=== PATIENT | female | born 1960 | race Caucasian/White ===

== ENCOUNTER → 2018-09-16 | Day surgery (SDC) | payer OTHER ==
[~2018-09-16] MED LIST: FENTANYL CITRATE/PF 100MCG/2 ML INJ ONE; HUMULIN R100 UNIT/2 SQ; INSULIN REGULAR, HUMAN 100 UNIT/1 ML 3ML VIAL ONE; LANTUS 3ML100 UNITS/ SQ; MIDAZOLAM HCL 5MG/ML 2ML VIAL ONE; PROPOFOL IV EMULSION 10 MG/ML 20 ML VIAL ONE; [UNRECOGNIZED DRUG - REMARK]
--- OUTSIDE RECORDS SUMMARY | 2018-09-16 08:14 | XMS REPORT | Continuity of Care Document ---
Author Author [facility] Interface Address Unknown Phone Unavailable Problems Problem Status Onset Date Classification Date Reported Comments Source Discharge Diagnosis: Rash and other nonspecific skin eruption 03/21/2016 03/24/2016 [facility] Discharge Diagnosis: Allergy, unspecified, initial encounter 03/21/2016 03/24/2016 [facility] RASH Active 03/20/2016 [facility] Discharge Diagnosis: Methicillin resistant Staphylococcus aureus infection, unspecified site 03/17/2016 03/20/2016 [facility] Discharge Diagnosis: Candidiasis of vulva and vagina 03/17/2016 03/20/2016 [facility] Discharge Diagnosis: Other sites of candidiasis 03/17/2016 03/20/2016 [facility] Discharge Diagnosis: Urinary tract infection, site not specified 11/26/2015 11/29/2015 [facility] VAGINAL PAIN Active 11/26/2015 [facility] CP R/O ACS Active 11/23/2015 [facility] CHEST PAIN Active 11/23/2015 [facility] MIA Active 05/25/2015 [facility] SYNCOPE AT CONCERT DIABETIC AND HAS NO M Active 05/25/2015 [facility] Discharge Diagnosis: Acute bronchitis 01/23/2015 01/26/2015 [facility] Discharge Diagnosis: Elevated BP 01/23/2015 01/26/2015 [facility] Discharge Diagnosis: Acute gastritis 05/19/2014 05/22/2014 [facility] ABDOMINAL PAIN Active 05/19/2014 [facility] Back pain Resolved Problem 03/24/2016 [facility] DM (<span [id number]</span>) Resolved Problem 03/24/2016 [facility] H/O: migraine Resolved Problem 03/24/2016 [facility] HTN - Hypertension Resolved Problem 03/24/2016 [facility] Mass in the abdomen Resolved Problem 03/24/2016 [facility] Depressive disorder Resolved Problem 03/24/2016 [facility] ACUTE KIDNEY FAILURE NOS Active [facility] Medications Medication Details Route Status Patient Instructions Ordering Provider Order Date Source predniSONE 20 mg oral tablet 60 mg=3 tab, PO, Daily, Take 3 tablets for 60 mg dose, X 3 day, # 9 tab, 0 Refill(s) Active 03/21/2016 [facility] Famotidine 20 MG Oral Tablet [Pepcid] 20 mg=1 tab, PO, BID, # 10 tab, 0 Refill(s) Active 03/21/2016 [facility] clindamycin 150 mg oral capsule 300 mg=2 cap, PO, Q6H, X 7 day, # 56 cap, 0 Refill(s) Active 03/21/2016 [facility] Morphine 4 mg, Route: IVP, Drug form: INJ, ONCE, Dosing Weight 95.455, kg, Priority: STAT, Start date: 03/21/16 13:33:00 CDT, Stop date: 03/21/16 13:33:00 CDT Inactive 03/21/2016 [facility] Pepcid 2 tab, Route: PO, ONCE, Dosing Weight 95.455, kg, Start date: 03/21/16 13:18:00 CDT, Stop date: 03/21/16 13:18:00 CDT Inactive 03/21/2016 [facility] Benadryl 50 mg, 1 cap, Route: PO, Drug form: CAP, ONCE, Dosing Weight 95.455, kg, Priority: STAT, Start date: 03/21/16 13:18:00 CDT, Stop date: 03/21/16 13:18:00 CDTNotes: (Same as: Benadryl) Inactive 03/21/2016 [facility] Solu-Medrol 125 mg, Route: IVP, ONCE, Dosing Weight 95.455, kg, Priority: STAT, Start date: 03/21/16 13:18:00 CDT, Stop date: 03/21/16 13:18:00 CDT Inactive 03/21/2016 [facility] Clindamycin 900 mg, Route: IVPB, ONCE, Dosing Weight 95.455, kg, Priority: STAT, Start date: 03/21/16 13:18:00 CDT, Stop date: 03/21/16 13:18:00 CDT Inactive 03/21/2016 [facility] Sodium Chloride 0.154 MEQ/ML Injectable Solution 1,000 mL, 1,000 ml/hr, Infuse Over: 1 hr, Route: IV, 1,000, Drug form: INJ, ONCE, Priority: STAT, Dosing Weight 95.455 kg, Start date: 03/21/16 13:17:00 CDT, Duration: 1 doses or times, Stop date: 03/21/16 13:17:00 CDT Inactive 03/21/2016 [facility] Clotrimazole 10 MG/ML Topical Cream 1 appl, TOP, BID, apply to affected area for 2 to 4 weeks, X 7 day, # 60 gm, 0 Refill(s) Active 03/17/2016 [facility] Fluconazole 150 MG Oral Tablet [Diflucan] 150 mg=1 tab, PO, qWeek, # 2 tab, 0 Refill(s) Active 03/17/2016 [facility] Nystatin 862319 UNT/ML Oral Suspension 500,000 unit=5 mL, PO, Q6H, Swish and Swallow, X 10 day, # 200 mL, 0 Refill(s) Active 03/17/2016 [facility] Mupirocin 0.02 MG/MG Topical Ointment 1 appl, TOP, TID, X 5 day, # 22 gm, 0 Refill(s) Active 03/17/2016 [facility] doxycycline hyclate 100 mg oral tablet 100 mg=1 tab, PO, Q12H, X 10 day, # 20 tab, 0 Refill(s) Active 03/17/2016 [facility] Sulfamethoxazole 800 MG / Trimethoprim 160 MG Oral Tablet [Bactrim] 1 tab, PO, BID, X 10 day, # 20 tab, 0 Refill(s) Active 03/17/2016 [facility] Diphenhydramine 50 mg, Route: PO, Drug form: CAP, ONCE, Dosing Weight 109.091, kg, Priority: STAT, Start date: 03/17/16 15:47:00 CDT, Stop date: 03/17/16 15:47:00 CDT Inactive 03/17/2016 [facility] Acetaminophen 325 MG / Hydrocodone Bitartrate 5 MG Oral Tablet 1 tab, Route: PO, Dosing Weight 109.091, kg, ONCE, STAT, Start date: 03/17/16 15:47:00 CDT, Stop date: 03/17/16 15:47:00 CDT Inactive 03/17/2016 [facility] Fluconazole 150 MG Oral Tablet [Diflucan] 150 mg=1 tab, PO, ONCE, # 1 tab, 0 Refill(s) Active 11/26/2015 [facility] Ciprofloxacin 500 MG Oral Tablet [Cipro] 500 mg=1 tab, PO, Q12H, X 10 day, # 20 tab, 0 Refill(s) Active 11/26/2015 [facility] Rocephin 1 gm, Route: IM, Drug form: PDR/INJ, ONCE, Dosing Weight 104.545, kg, Priority: STAT, Start date: 11/26/15 11:21:00, Stop date: 11/26/15 11:21:00 Inactive 11/26/2015 [facility] Acetaminophen 325 MG / Hydrocodone Bitartrate 10 MG Oral Tablet [Swayzee 10/325] 1 tab, Route: PO, Drug Form: TAB, Dosing Weight 104.545, kg, ONCE, STAT, Start date: 11/26/15 11:07:00, Stop date: 11/26/15 11:07:00 Inactive 11/26/2015 [facility] Lidocaine Viscous 2% mucous membrane solution 0.1 gm, 5 mL, Route: TOP, ONCE, Priority: Stat, Start date: 11/26/15 10:49:00, Stop date: 11/26/15 10:49:00 Inactive 11/26/2015 [facility] Nitroglycerin 0.4 mg, Route: SL, Drug form: TAB, Q5Min, Dosing Weight 100, kg, PRN Chest Pain, Start date: 11/24/15 17:27:00, Duration: 3 doses or times, Stop date: Limited # of times Inactive 11/24/2015 [facility] atorvastatin 40 mg oral tablet 40 mg=1 tab, PO, Bedtime, # 30 tab, 3 Refill(s) Active 11/24/2015 [facility] Morphine 1 mg, 0.5 mL, Route: IVP, Drug form: INJ, Q6H, Dosing Weight 100, kg, PRN Pain Score 7-10, Start date: 11/24/15 12:38:00, Duration: 30 day, Stop date: 12/24/15 12:37:00Notes: (Same as:MORPhine Sulfate) Inactive 11/24/2015 [facility] Saline Flush 0.9% 10 ml, Route: IVP, Drug Form: INJ, Dosing Weight 100, kg, Q12H, Start date: 11/24/15 9:00:00, Duration: 30 day, Stop date: 12/23/15 21:00:00Notes: (Same as: BD Posiflush) Inactive 11/24/2015 [facility] Insulin, Aspart, Human 6 unit, 0.06 mL, Route: SUB-Q, Drug form: SOLN, TID-Before Meals, Dosing Weight 100, kg, PRN Blood Glucose Results, Start date: 11/23/15 21:44:00, Duration: 30 day, Stop date: 12/23/15 21:43:00Notes: Roll in palms of hands gently; Do not shake vigorously. (Same as: NovoLOG) "single patient use only" WASTE: F/P - Black; E - Municipal Trash Bin Stable for 28 days at room temperature. Expires in days from Date No Longer Active 11/24/2015 [facility] Glucagon 1 mg, Route: IM, Drug form: PDR/INJ, PRN, Dosing Weight 100, kg, PRN Blood Glucose Results, Start date: 11/23/15 21:44:00, Duration: 30 day, Stop date: 12/23/15 21:43:00 No Longer Active 11/24/2015 [facility] Dextrose 50% Syringe 25 gm, 50 mL, Route: IVP, Drug Form: INJ, Dosing Weight 100, kg, PRN, PRN Blood Glucose Results, Start date: 11/23/15 21:44:00, Duration: 30 day, Stop date: 12/23/15 21:43:00 No Longer Active 11/24/2015 [facility] Saline Flush 0.9% 10 ml, Route: IVP, Drug Form: INJ, Dosing Weight 100, kg, PRN, PRN Line Flush, Start date: 11/23/15 21:43:00, Duration: 30 day, Stop date: 12/23/15 21:42:00Notes: (Same as: BD Posiflush) No Longer Active 11/24/2015 [facility] Morphine 2 mg, 1 mL, Route: IVP, Drug form: INJ, Q15Min, Dosing Weight 100, kg, PRN Chest Pain, Start date: 11/23/15 21:43:00, Duration: 2 doses or times, Stop date: Limited # of timesNotes: (Same as:MORPhine Sulfate) No Longer Active 11/24/2015 [facility] Nitroglycerin 0.4 mg, 1 tab, Route: SL, Drug form: TAB, Q5Min, Dosing Weight 100, kg, PRN Chest Pain, Start date: 11/23/15 21:43:00, Duration: 3 doses or times, Stop date: Limited # of timesNotes: (Same as:Nitroqu ick, Nitrostat) "Do Not Crush" Sublingual tablet No Longer Active 11/24/2015 [facility] Ondansetron 4 mg, 1 tab, Route: PO, Drug form: TAB, Q8H, Dosing Weight 100, kg, PRN Nausea & Vomiting, Start date: 11/23/15 21:43:00, Duration: 30 day, Stop date: 12/23/15 21:42:00Notes: (Same as: Zofran) No Longer Active 11/24/2015 [facility] Acetaminophen 325 MG / Hydrocodone Bitartrate 10 MG Oral Tablet [Swayzee 10/325] 1 tab, PO, TID, PRN Pain, # 60 tab, 0 Refill(s) Active 11/24/2015 [facility] Albuterol 0.833 MG/ML / Ipratropium [place] 0.167 MG/ML Inhalant Solution 3 mL, Route: NEB, Drug Form: SOLN, Dosing Weight 100, kg, ONCE, STAT, Start date: 11/23/15 20:05:00, Stop date: 11/23/15 20:05:00Notes: (Same as: Duoneb) No Longer Active 11/24/2015 [facility] Acetaminophen 325 MG / Hydrocodone Bitartrate 5 MG Oral Tablet [Swayzee 5/325] 1 tab, Route: PO, Drug Form: TAB, Dosing Weight 100, kg, ONCE, STAT, Start date: 11/23/15 19:07:00, Stop date: 11/23/15 19:07:00 Inactive 11/24/2015 [facility] Nitroglycerin 0.4 mg, 1 tab, Route: SL, Drug form: TAB, Q5Min, Dosing Weight 100, kg, PRN Chest Pain, Priority: STAT, Start date: 11/23/15 19:06:00, Duration: 3 doses or times, Stop date: Limited # of timesNotes: (Same as:Nitroquick, Nitrostat) "Do Not Crush" Sublingual tablet Inactive 11/24/2015 [facility] Aspirin 324 mg, Route: CHEW, Drug form: CHEWTAB, ONCE, Dosing Weight 100, kg, Priority: STAT, Start date: 11/23/15 19:06:00, Stop date: 11/23/15 19:06:00 Inactive 11/24/2015 [facility] Saline Flush 0.9% 10 mL, Route: IVP, Drug Form: INJ, Dosing Weight 100, kg, PRN, PRN Line Flush, Start date: 11/23/15 16:39:00, Duration: 30 day, Stop date: 12/23/15 16:38:00Notes: (Same as: BD Posiflush) Inactive 11/23/2015 [facility] topiramate 25 mg, 1 tab, Route: PO, Drug form: TAB, Q12H, Dosing Weight 86.364, kg, Start date: 05/25/15 22:01:00, Duration: 30 day, Stop date: 06/24/15 21:00:00Notes: (Same As: Topamax) "Do Not Crush" No Longer Active 05/26/2015 [facility] Sumatriptan 50 mg, 2 tab, Route: PO, Drug form: TAB, TID, Dosing Weight 86.364, kg, PRN Headache 1-5, Start date: 05/25/15 21:38:00, Duration: 30 day, Stop date: 06/24/15 21:37:00Notes: (Same As: Imitrex) No Longer Active 05/26/2015 [facility] topiramate 25 mg oral capsule 25 mg=1 cap, PO, BID, 0 Refill(s) Active 05/26/2015 [facility] SUMAtriptan 50 mg oral tablet 50 mg=1 tab, PO, TID, 0 Refill(s) Active 05/26/2015 [facility] Famotidine 40 mg, PO, BID, # 60 tab, 0 Refill(s) Active 05/26/2015 [facility] Metronidazole 500 MG Oral Tablet [Flagyl] 500 mg=1 tab, PO, Q12H, # 30 tab, 0 Refill(s) No Longer Active 05/26/2015 [facility] omeprazole 20 mg oral delayed release capsule 20 mg=1 cap, PO, Daily, 0 Refill(s) Active 05/26/2015 [facility] Tetracycline 250 MG Oral Capsule 250 mg=1 cap, PO, Q6H, # 56 cap, 0 Refill(s) No Longer Active 05/26/2015 [facility] Metformin hydrochloride 1000 MG Oral Tablet 1,000 mg=1 tab, PO, Daily, 0 Refill(s) Active 05/26/2015 [facility] NS 1,000 mL 1,000 mL, Rate: 125 ml/hr, Infuse over: 8 hr, Route: IV, Dosing Weight 86.364 kg, Total Volume: 1,000, Start date: 05/25/15 17:24:00, Duration: 30 day, Stop date: 06/24/15 17:23:00 No Longer Active 05/25/2015 [facility] Protonix 40 mg, 1 tab, Route: PO, Drug form: ECTAB, Before Dinner, Dosing Weight 86.364, kg, Start date: 05/25/15 16:30:00, Duration: 30 day, Stop date: 06/23/15 16:30:00Notes: Tablet should not be chewed or crushed. (Same as: Protonix) No Longer Active 05/25/2015 [facility] Acetaminophen 325 MG / Hydrocodone Bitartrate 7.5 MG Oral Tablet [Swayzee 7.5/325] 1 tab, Route: PO, Drug Form: TAB, Dosing Weight 86.364, kg, Q4H, PRN Pain Score 4-6, Start date: 05/25/15 14:15:00, Duration: 30 day, Stop date: 06/24/15 14:14:00Notes: Same as Swayzee 325-7.5mg Do not exceed 4gm/day of acetaminophen. No Longer Active 05/25/2015 [facility] Thiamine 100 mg, 1 tab, Route: PO, Drug form: TAB, Daily, Dosing Weight 86.364, kg, Start date: 05/25/15 9:00:00, Duration: 30 day, Stop date: 06/23/15 9:00:00Notes: (Same As: Vitamin B1) No Longer Active 05/25/2015 [facility] Folic Acid 1 mg, 1 tab, Route: PO, Drug form: TAB, Daily, Dosing Weight 86.364, kg, Start date: 05/25/15 9:00:00, Duration: 30 day, Stop date: 06/23/15 9:00:00Notes: (Same as: Folvite) No Longer Active 05/25/2015 [place] multivitamin 1 tab, Route: PO, Drug Form: TAB, Dosing Weight 86.364, kg, Daily, Start date: 05/25/15 9:00:00, Duration: 30 day, Stop date: 06/23/15 9:00:00 Inactive 05/25/2015 [facility] pneumococcal capsular polysaccharide type 1 vaccine / pneumococcal capsular polysaccharide type 10A vaccine / pneumococcal capsular polysaccharide type 11A vaccine / pneumococcal capsular polysaccharide type 12F vaccine / pneumococcal capsular polysacchar 0.5 mL, Route: IM, Drug Form: INJ, Daily, Start date: 05/25/15 9:00:00, Duration: 1 doses or times, Stop date: 05/25/15 9:00:00Notes: (Same as: Pneumovax 23) Refrigerate Inactive 05/25/2015 [facility] multivitamin with minerals 1 tab, Route: PO, Drug Form: TAB, Daily, Start date: 05/25/15 9:00:00, Duration: 30 day, Stop date: 06/23/15 9:00:00Notes: (Same as:Centrum, Certagen) Give with food. No Longer Active 05/25/2015 [facility] Nicotine 14 mg, 1 patch, Route: TOP, Drug form: ERFILM, Daily, Dosing Weight 86.364, kg, Start date: 05/25/15 9:00:00, Duration: 30 day, Stop date: 06/23/15 9:00:00Notes: (Same as: Habitrol) "Remove old patch before application of new patch" No Longer Active 05/25/2015 [facility] heparin 5,000 unit, 1 mL, Route: SUB-Q, Drug form: INJ, Q12H, Dosing Weight 86.364, kg, Start date: 05/25/15 9:00:00, Duration: 30 day, Stop date: 06/23/15 21:00:00Notes: porcine heparin No Longer Active 05/25/2015 [facility] Cipro 250 mg, 1 tab, Route: PO, Drug form: TAB, [id number], Dosing Weight 86.364, kg, Start date: 05/25/15 8:00:00, Duration: 3 day, Stop date: 05/27/15 20:00:00Notes: May interfere w/enteral feedings - Take 1 hr before or 2 hrs after antacids, dairy pdt & minerals. On empty stomach. No Longer Active 05/25/2015 [facility] Albuterol 0.833 MG/ML / Ipratropium [place] 0.167 MG/ML Inhalant Solution [DuoNeb] 3 mL, Route: INHALATION, Drug Form: SOLN, Dosing Weight 86.364, kg, RQ6H, NOW, Start date: 05/25/15 6:20:00, Duration: 30 day, Stop date: 06/24/15 2:00:00Notes: (Same as: Duoneb) No Longer Active 05/25/2015 [facility] Sodium Chloride 0.154 MEQ/ML Injectable Solution 1,000 mL, 1,000 ml/hr, Infuse Over: 1 hr, Route: IV, 1,000, Drug form: INJ, ONCE, Priority: STAT, Dosing Weight 86.364 kg, Start date: 05/25/15 6:01:00, Duration: 1 doses or times, Stop date: 05/25/15 6:01:00 Inactive 05/25/2015 [facility] Insulin, Aspart, Human 3 unit, 0.03 mL, Route: SUB-Q, Drug form: SOLN, Bedtime, Dosing Weight 86.364, kg, PRN Blood Glucose Results, Start date: 05/25/15 6:00:00, Duration: 30 day, Stop date: 06/24/15 5:59:00Notes: Roll in palms of hands gently; Do not shake vigorously. (Same as: NovoLOG) "single patient use only" Stable for 28 days at room temperature. Expires in days from Date No Longer Active 05/25/2015 [facility] Dextrose 50% Syringe 12.5 gm, 25 mL, Route: IVP, Drug Form: INJ, Dosing Weight 86.364, kg, PRN, PRN Blood Glucose Results, Start date: 05/25/15 6:00:00, Duration: 30 day, Stop date: 06/24/15 5:59:00 No Longer Active 05/25/2015 [facility] Glucagon 1 mg, Route: IM, Drug form: PDR/INJ, PRN, Dosing Weight 86.364, kg, PRN Blood Glucose Results, Start date: 05/25/15 6:00:00, Duration: 30 day, Stop date: 06/24/15 5:59:00 No Longer Active 05/25/2015 [facility] Acetaminophen 325 MG / Hydrocodone Bitartrate 7.5 MG Oral Tablet [Swayzee 7.5/325] 1 tab, Route: PO, Drug Form: TAB, Dosing Weight 86.364, kg, Q6H, PRN Pain Score 4-6, Start date: 05/25/15 5:59:00, Duration: 30 day, Stop date: 06/24/15 5:58:00Notes: Same as Swayzee 325-7.5mg Do not exceed 4gm/day of acetaminophen. Inactive 05/25/2015 [facility] Tylenol 650 mg, 2 tab, Route: PO, Drug form: TAB, Q6H, Dosing Weight 86.364, kg, PRN Pain Score 1-3, Start date: 05/25/15 5:59:00, Duration: 30 day, Stop date: 06/24/15 5:58:00Notes: Do not exceed 4 gm/day. (Same as: Tylenol) No Longer Active 05/25/2015 [facility] normal saline 0.9% IV 1,000 mL 1,000 mL, Rate: 150 ml/hr, Infuse over: 6.7 hr, Route: IV, Dosing Weight 86.364 kg, Total Volume: 1,000, Start date: 05/25/15 5:29:00, Duration: 30 day, Stop date: 06/24/15 5:28:00 Inactive 05/25/2015 [facility] Sodium Chloride 0.154 MEQ/ML Injectable Solution 1,000 mL, 1,000 ml/hr, Infuse Over: 1 hr, Route: IV, 1,000, Drug form: INJ, ONCE, Priority: STAT, Dosing Weight 86.364 kg, Start date: 05/25/15 4:46:00, Duration: 1 doses or times, Stop date: 05/25/15 4:46:00 Inactive 05/25/2015 [facility] Acetaminophen 300 MG / butalbital 50 MG / Caffeine 40 MG Oral Capsule [Fioricet] 1 cap, PO, Q4H, PRN Headache, Do not exceed 6 capsules in 24 hours, # 60 cap, 0 Refill(s)Special Instructions: Do not exceed 6 capsules in 24 hours Active 01/23/2015 [facility] albuterol 90 mcg/inh inhalation aerosol 1 puff, INHALATION, QID, wheezing, # 1 ea, 0 Refill(s) Active 01/23/2015 [facility] Albuterol 0.83 MG/ML Inhalant Solution 2.49 mg=3 mL, INHALATION, Q6H, # 120 ea, 0 Refill(s) Active 01/23/2015 [facility] Nebulizer 1 ea, MISC, ONCALL, # 1 ea, 0 Refill(s) Active 01/23/2015 [facility] Aspirin 324 mg, Route: CHEW, Drug form: CHEWTAB, ONCE, Dosing Weight 90.909, kg, Priority: STAT, Start date: 01/23/15 11:44:00, Stop date: 01/23/15 11:44:00 Inactive 01/23/2015 [facility] methylPREDNISolone SODium SUCCinate 125 mg, Route: IVP, ONCE, Dosing Weight 90.909, kg, Priority: STAT, Start date: 01/23/15 11:02:00, Stop date: 01/23/15 11:02:00 Inactive 01/23/2015 [facility] Albuterol 0.83 MG/ML Inhalant Solution 2.49 mg, Route: NEB, Drug form: SOLN, ONCE, Dosing Weight 90.909, kg, Priority: STAT, Start date: 01/23/15 11:01:00, Stop date: 01/23/15 11:01:00 Inactive 01/23/2015 [facility] Albuterol 0.833 MG/ML / Ipratropium [place] 0.167 MG/ML Inhalant Solution 3 mL, Route: NEB, Dosing Weight 90.909, kg, ONCE, STAT, Start date: 01/23/15 11:01:00, Stop date: 01/23/15 11:01:00 Inactive 01/23/2015 [facility] Saline Flush 0.9% 10 mL, Route: IVP, Drug Form: INJ, Dosing Weight 90.909, kg, PRN, PRN Line Flush, Start date: 01/23/15 11:01:00, Duration: 30 day, Stop date: 02/22/15 11:00:00Notes: (Same as: BD Posiflush) Inactive 01/23/2015 [facility] Ranitidine 300 MG Oral Tablet [Zantac] 300 mg=1 tab, PO, Daily, # 30 tab, 0 Refill(s) Active 05/19/2014 [facility] Allergies, Adverse Reactions, Alerts Substance Category Reaction Severity Reaction type Status Date Reported Comments Source NKFA Assertion Drug allergy Active [facility] Immunizations Immunization Date Given Site Status Last Updated Comments Source pneumococcal 23-valent vaccine 05/25/2015 Right deltoid completed [facility] Results Order Name Results Value Reference Range Date Interpretation Comments Source CHEM PANEL B/C Ratio 13 6 - 25 03/21/2016 [facility] CHEM PANEL AGAP 12.1 meq/L 10.0 - 20.0 03/21/2016 [facility] CHEM PANEL A/G Ratio 0.8 0.7 - 1.6 03/21/2016 [facility] CHEM PANEL Globulin 4.0 g/dL 2.0 - 4.0 03/21/2016 [facility] CHEM PANEL eGFR 55 mL/min/1.73m2 03/21/2016 Result Comment: The eGFR is calculated using the CKD-EPI formula. In most young, healthy individuals the eGFR will be >90 mL/min/1.73m2. The eGFR declines with age. An eGFR of 60-89 may be normal in some populations, particularly the elderly, for whom the CKD-EPI formula has not been extensively validated. Use of the eGFR is not recommended in the following populations: Individuals with unstable creatinine concentrations, including patients and those with serious co-morbid conditions. Patients with extremes in muscle mass or diet. The data above are obtained from the National Kid[employer] Disease Education Program (NKDEP) which additionally recommends that when the eGFR is used in patients with extremes of body mass index for purposes of drug dosing, the eGFR should be multiplied by the estimated BMI. [facility] CHEM PANEL AST 24 unit/L 0 - 37 03/21/2016 [facility] CHEM PANEL ALT 33 unit/L 0 - 65 03/21/2016 [facility] CHEM PANEL Albumin Lvl 3.2 g/dL 3.5 - 5.0 03/21/2016 [facility] CHEM PANEL Bili Total 0.5 mg/dL 0.2 - 1.3 03/21/2016 [facility] CHEM PANEL Alk Phos 119 unit/L 39 - 136 03/21/2016 [facility] CHEM PANEL Calcium Lvl 8.6 mg/dL 8.5 - 10.5 03/21/2016 [facility] CHEM PANEL Total Protein 7.2 g/dL 6.4 - 8.4 03/21/2016 [facility] CHEM PANEL Potassium Lvl 4.1 meq/L 3.5 - 5.1 03/21/2016 [facility] CHEM PANEL Sodium Lvl 137 meq/L 135 - 145 03/21/2016 [facility] CHEM PANEL CO2 29 meq/L 24 - 32 03/21/2016 [facility] CHEM PANEL Chloride Lvl 100 meq/L 95 - 109 03/21/2016 [facility] CHEM PANEL BUN 14 mg/dL 7 - 22 03/21/2016 [facility] CHEM PANEL Creatinine Lvl 1.11 mg/dL 0.50 - 1.40 03/21/2016 [facility] CHEM PANEL Glucose Lvl 222 mg/dL 70 - 99 03/21/2016 [facility] HEMATOLOGY Segs 50.7 % 45.0 - 75.0 03/21/2016 [facility] HEMATOLOGY Lymphocytes 32.8 % 20.0 - 40.0 03/21/2016 [facility] HEMATOLOGY Monocytes 8.5 % 2.0 - 12.0 03/21/2016 [facility] HEMATOLOGY Segs-Bands # 3.9 K/CMM 1.5 - 8.1 03/21/2016 [facility] HEMATOLOGY Eosinophils 7.4 % 0.0 - 4.0 03/21/2016 [facility] HEMATOLOGY Basophils 0.6 % 0.0 - 1.0 03/21/2016 [facility] HEMATOLOGY Lymphocytes # 2.6 K/CMM 1.0 - 5.5 03/21/2016 [facility] HEMATOLOGY Monocytes # 0.7 K/CMM 0.0 - 0.8 03/21/2016 [facility] HEMATOLOGY Eosinophils # 0.6 K/CMM 0.0 - 0.5 03/21/2016 [facility] HEMATOLOGY MCHC 31.7 g/dL 32.0 - 36.0 03/21/2016 [facility] HEMATOLOGY RDW 15.0 % 11.5 - 14.5 03/21/2016 [facility] HEMATOLOGY Platelet 280 K/CMM 133 - 450 03/21/2016 [facility] HEMATOLOGY MPV 7.6 fL 7.4 - 10.4 03/21/2016 [facility] HEMATOLOGY RBC 5.16 M/CMM 4.20 - 5.40 03/21/2016 [facility] HEMATOLOGY WBC 7.8 K/CMM 3.7 - 10.4 03/21/2016 [facility] HEMATOLOGY Hgb 14.5 g/dL 12.0 - 16.0 03/21/2016 [facility] HEMATOLOGY MCH 28.0 pg 27.0 - 31.0 03/21/2016 [facility] HEMATOLOGY MCV 88.2 fL 80.0 - 98.0 03/21/2016 [facility] HEMATOLOGY Hct 45.6 % 36.0 - 48.0 03/21/2016 [facility] URINE AND STOOL UA Bacteria Few /HPF None Seen /HPF 03/21/2016 [facility] URINE AND STOOL UA WBC 3-5 /HPF 0 - 5 03/21/2016 [facility] URINE AND STOOL UA RBC 3-5 /HPF 0 - 2 03/21/2016 [facility] URINE AND STOOL UA Nitrite Negative (03/21/16 1:27 PM) Negative 03/21/2016 [facility] URINE AND STOOL UA Leuk Est Negative (03/21/16 1:27 PM) Negative 03/21/2016 [facility] URINE AND STOOL UA Sq Epi Moderate /LPF Few /LPF 03/21/2016 [facility] URINE AND STOOL UA Urobilinogen 1.0 EU/dL 0.1 - 1.0 03/21/2016 [facility] URINE AND STOOL UA Blood Trace *ABN* (03/21/16 1:27 PM) Negative 03/21/2016 [facility] URINE AND STOOL UA Bili Small *ABN* (03/21/16 1:27 PM) Negative 03/21/2016 [facility] URINE AND STOOL UA Ketones Negative *NA* (03/21/16 1:27 PM) Negative 03/21/2016 [facility] URINE AND STOOL UA Glucose >=1000 mg/dL Negative mg/dL 03/21/2016 [facility] URINE AND STOOL UA Protein 30 mg/dL Negative mg/dL 03/21/2016 [facility] URINE AND STOOL UA Spec Grav >=1.030 *ABN* (03/21/16 1:27 PM) <=1.030 03/21/2016 [facility] URINE AND STOOL UA Turbidity Clear (03/21/16 1:27 PM) Clear 03/21/2016 [facility] URINE AND STOOL UA pH 6.0 5.0 - 8.0 03/21/2016 [facility] URINE AND STOOL UA Color Yellow *NA* (03/21/16 1:27 PM) Yellow 03/21/2016 [facility] MOLECULAR DIAGNOSTIC N gonorrhea by Amp Det (APTIMA) Negative *NA* (11/26/15 11:01 AM) Negative 11/26/2015 [facility] MOLECULAR DIAGNOSTIC Source APTIMA Endocervix *NA* (11/26/15 11:01 AM) 11/26/2015 [facility] MOLECULAR DIAGNOSTIC C trachomatis by Amp Det (APTIMA) Negative *NA* (11/26/15 11:01 AM) Negative 11/26/2015 [facility] URINE AND STOOL UA Color Josefa 11/26/2015 [facility] URINE AND STOOL UA RBC 49 /HPF 0 - 2 11/26/2015 [facility] URINE AND STOOL UA Sq Epi Occasional /LPF Few /LPF 11/26/2015 [facility] URINE AND STOOL UA WBC 28 /HPF 0 - 5 11/26/2015 [facility] URINE AND STOOL UA Leuk Est Trace *ABN* (11/26/15 11:01 AM) Negative 11/26/2015 [facility] URINE AND STOOL UA Urobilinogen 4.0 mg/dL 0.1 - 1.0 11/26/2015 [facility] URINE AND STOOL UA Blood Moderate *ABN* (11/26/15 11:01 AM) Negative 11/26/2015 [facility] URINE AND STOOL UA Nitrite Positive *ABN* (11/26/15 11:01 AM) Negative 11/26/2015 [facility] URINE AND STOOL UA Bacteria Few /HPF None Seen /HPF 11/26/2015 [facility] URINE AND STOOL UA Mucus Few /LPF None Seen /LPF 11/26/2015 [facility] URINE AND STOOL UA pH 5.0 5.0 - 8.0 11/26/2015 [facility] URINE AND STOOL UA Protein 100 mg/dL Negative mg/dL 11/26/2015 [facility] URINE AND STOOL UA Bili Negative *NA* (11/26/15 11:01 AM) Negative 11/26/2015 [facility] URINE AND STOOL UA Ketones Negative mg/dL Negative mg/dL 11/26/2015 [facility] URINE AND STOOL UA Glucose 500 mg/dL Negative mg/dL 11/26/2015 [facility] URINE AND STOOL UA Turbidity Clear (11/26/15 11:01 AM) Clear 11/26/2015 [facility] URINE AND STOOL UA Spec Grav 1.030 <=1.030 11/26/2015 [facility] LIPIDS VLDL 40 11/24/2015 [facility] LIPIDS LDL (Calculated) 130 mg/dL <=99 mg/dL 11/24/2015 [facility] LIPIDS HDL 50 mg/dL >=61 mg/dL 11/24/2015 [facility] LIPIDS Chol 220 mg/dL <=199 mg/dL 11/24/2015 [facility] LIPIDS Trig 202 mg/dL <=149 mg/dL 11/24/2015 [facility] LIPIDS CHD Risk 4.40 3.90 - 5.80 11/24/2015 [facility] CARDIAC ENZYMES Troponin-I null 0.00 - 0.40 11/24/2015 [facility] CARDIAC ENZYMES Total CK 37 unit/L 12 - 191 11/24/2015 [facility] CARDIAC ENZYMES CK MB null 0.5 - 3.6 11/24/2015 [facility] CARDIAC ENZYMES Troponin-I null 0.00 - 0.40 11/24/2015 [facility] CARDIAC ENZYMES Total CK 32 unit/L 12 - 191 11/24/2015 [facility] CARDIAC ENZYMES CK MB null 0.5 - 3.6 11/24/2015 [facility] CARDIAC ENZYMES CK MB null 0.5 - 3.6 11/23/2015 [facility] CARDIAC ENZYMES Troponin-I null 0.00 - 0.40 11/23/2015 [facility] CARDIAC ENZYMES Total CK 37 unit/L 12 - 191 11/23/2015 [facility] CARDIAC ENZYMES CK MB Index null 0.0 - 2.5 11/23/2015 [facility] CHEM PANEL eGFR 81 mL/min/1.73m2 11/23/2015 Result Comment: The eGFR is calculated using the CKD-EPI formula. In most young, healthy individuals the eGFR will be >90 mL/min/1.73m2. The eGFR declines with age. An eGFR of 60-89 may be normal in some populations, particularly the elderly, for whom the CKD-EPI formula has not been extensively validated. Use of the eGFR is not recommended in the following populations: Individuals with unstable creatinine concentrations, including patients and those with serious co-morbid conditions. Patients with extremes in muscle mass or diet. The data above are obtained from the National Kidney Disease Education Program (NKDEP) which additionally recommends that when the eGFR is used in patients with extremes of body mass index for purposes of drug dosing, the eGFR should be multiplied by the estimated BMI. [facility] CHEM PANEL Bili Total 0.4 mg/dL 0.2 - 1.3 11/23/2015 [facility] CHEM PANEL B/C Ratio 23 6 - 25 11/23/2015 [facility] CHEM PANEL AGAP 11.2 meq/L 10.0 - 20.0 11/23/2015 [facility] CHEM PANEL A/G Ratio 0.7 0.7 - 1.6 11/23/2015 [facility] CHEM PANEL Globulin 4.4 g/dL 2.0 - 4.0 11/23/2015 [facility] CHEM PANEL Total Protein 7.6 g/dL 6.4 - 8.4 11/23/2015 [facility] CHEM PANEL CO2 29 meq/L 24 - 32 11/23/2015 [facility] CHEM PANEL Albumin Lvl 3.2 g/dL 3.5 - 5.0 11/23/2015 [facility] CHEM PANEL Calcium Lvl 9.2 mg/dL 8.5 - 10.5 11/23/2015 [facility] CHEM PANEL Chloride Lvl 104 meq/L 95 - 109 11/23/2015 [facility] CHEM PANEL Alk Phos 109 unit/L 39 - 136 11/23/2015 [facility] CHEM PANEL AST 20 unit/L 0 - 37 11/23/2015 [facility] CHEM PANEL ALT 37 unit/L 0 - 65 11/23/2015 [facility] CHEM PANEL BUN 19 mg/dL 7 - 22 11/23/2015 [facility] CHEM PANEL Glucose Lvl 133 mg/dL 70 - 99 11/23/2015 [facility] CHEM PANEL Potassium Lvl 4.2 meq/L 3.5 - 5.1 11/23/2015 [facility] CHEM PANEL Sodium Lvl 140 meq/L 135 - 145 11/23/2015 [facility] CHEM PANEL Creatinine Lvl 0.81 mg/dL 0.50 - 1.40 11/23/2015 [facility] HEMATOLOGY MPV 7.3 fL 7.4 - 10.4 11/23/2015 [facility] HEMATOLOGY Platelet 244 K/CMM 133 - 450 11/23/2015 [facility] HEMATOLOGY MCHC 31.7 g/dL 32.0 - 36.0 11/23/2015 [facility] HEMATOLOGY RDW 14.1 % 11.5 - 14.5 11/23/2015 [facility] HEMATOLOGY MCH 28.6 pg 27.0 - 31.0 11/23/2015 [facility] HEMATOLOGY MCV 90.2 fL 80.0 - 98.0 11/23/2015 [facility] HEMATOLOGY WBC 8.2 K/CMM 3.7 - 10.4 11/23/2015 [facility] HEMATOLOGY RBC 4.78 M/CMM 4.20 - 5.40 11/23/2015 [facility] HEMATOLOGY Hct 43.1 % 36.0 - 48.0 11/23/2015 [facility] Hgb 13.7 g/dL 12.0 - 16.0 11/23/2015 [facility] HEMATOLOGY Basophils 0.9 % 0.0 - 1.0 11/23/2015 [facility] HEMATOLOGY Eosinophils 1.7 % 0.0 - 4.0 11/23/2015 [facility] HEMATOLOGY Lymphocytes # 2.0 K/CMM 1.0 - 5.5 11/23/2015 [facility] HEMATOLOGY Segs-Bands # 5.4 K/CMM 1.5 - 8.1 11/23/2015 [facility] Monocytes # 0.6 K/CMM 0.0 - 0.8 11/23/2015 [facility] Basophils # 0.1 K/CMM 0.0 - 0.2 11/23/2015 [facility] Eosinophils # 0.1 K/CMM 0.0 - 0.5 11/23/2015 [facility] Segs 65.7 % 45.0 - 75.0 11/23/2015 [facility] Monocytes 6.9 % 2.0 - 12.0 11/23/2015 [facility] Lymphocytes 24.8 % 20.0 - 40.0 11/23/2015 [facility] Chest 1view DX Chest 1view DX Examination: Chest x-ray, single view History: Chest pain Comparison: 05/25/2015 Findings: The lungs are clear and without focal consolidation. The cardiomediastinal silhouette is within normal limits. No pleural effusion or pneumothorax is seen. The osseous structures are without focal abnormality. IMPRESSION: No acute cardiopulmonary disease. SL: 16 11/23/2015 - - Read by: Efren Bauer MD Dictated Date/time: 11/23/15 17:32 Electronically Signed by: Efren Bauer MD 11/23/15 17:32 FINAL REPORT [facility] CHEM PANEL Phosphorus 4.2 mg/dL 2.5 - 4.5 05/26/2015 [facility] CHEM PANEL Magnesium Lvl 2.1 mg/dL 1.8 - 2.4 05/26/2015 [facility] CHEM PANEL eGFR 51 mL/min/1.73m2 05/26/2015 Result Comment: The eGFR is calculated using the CKD-EPI formula. In most young, healthy individuals the eGFR will be >90 mL/min/1.73m2. The eGFR declines with age. An eGFR of 60-89 may be normal in some populations, particularly the elderly, for whom the CKD-EPI formula has not been extensively validated. Use of the eGFR is not recommended in the following populations: Individuals with unstable creatinine concentrations, including patients and those with serious co-morbid conditions. Patients with extremes in muscle mass or diet. The data above are obtained from the National Kidney Disease Education Program (NKDEP) which additionally recommends that when the eGFR is used in patients with extremes of body mass index for purposes of drug dosing, the eGFR should be multiplied by the estimated BMI. [facility] CHEM PANEL Calcium Lvl 8.6 mg/dL 8.5 - 10.5 05/26/2015 [facility] CHEM PANEL Chloride Lvl 107 meq/L 95 - 109 05/26/2015 [facility] CHEM PANEL AGAP 12.5 meq/L 10.0 - 20.0 05/26/2015 [facility] CHEM PANEL CO2 27 meq/L 24 - 32 05/26/2015 [facility] CHEM PANEL Creatinine Lvl 1.2 mg/dL 0.5 - 1.4 05/26/2015 [facility] CHEM PANEL BUN 31 mg/dL 7 - 22 05/26/2015 [facility] CHEM PANEL Glucose Lvl 195 mg/dL 70 - 99 05/26/2015 [facility] CHEM PANEL Sodium Lvl 142 meq/L 135 - 145 05/26/2015 [facility] CHEM PANEL Potassium Lvl 4.5 meq/L 3.5 - 5.1 05/26/2015 [facility] LIPIDS LDL (Calculated) 115 mg/dL <=99 mg/dL 05/26/2015 [facility] LIPIDS VLDL 47 05/26/2015 [facility] LIPIDS HDL 36 mg/dL >=61 mg/dL 05/26/2015 [facility] LIPIDS Chol 198 mg/dL <=199 mg/dL 05/26/2015 [facility] LIPIDS Trig 234 mg/dL <=149 mg/dL 05/26/2015 [facility] LIPIDS CHD Risk 5.50 3.90 - 5.80 05/26/2015 [facility] URINE CHEM U Creatinine 40.9 mg/dL 05/26/2015 [facility] URINE CHEM U Potassium 16.7 meq/L 05/26/2015 [facility] URINE CHEM U Chloride 97 meq/L 05/26/2015 [facility] URINE CHEM U Sodium 107 meq/L 05/26/2015 [facility] CHEM PANEL eGFR 27 mL/min/1.73m2 05/25/2015 Result Comment: The eGFR is calculated using the CKD-EPI formula. In most young, healthy individuals the eGFR will be >90 mL/min/1.73m2. The eGFR declines with age. An eGFR of 60-89 may be normal in some populations, particularly the elderly, for whom the CKD-EPI formula has not been extensively validated. Use of the eGFR is not recommended in the following populations: Individuals with unstable creatinine concentrations, including patients and those with serious co-morbid conditions. Patients with extremes in muscle mass or diet. The data above are obtained from the National Kidney Disease Education Program (NKDEP) which additionally recommends that when the eGFR is used in patients with extremes of body mass index for purposes of drug dosing, the eGFR should be multiplied by the estimated BMI. [facility] CHEM PANEL AGAP 14.1 meq/L 10.0 - 20.0 05/25/2015 [facility] CHEM PANEL Glucose Lvl 318 mg/dL 70 - 99 05/25/2015 [facility] CHEM PANEL BUN 42 mg/dL 7 - 22 05/25/2015 [facility] CHEM PANEL Calcium Lvl 8.3 mg/dL 8.5 - 10.5 05/25/2015 [facility] CHEM PANEL CO2 26 meq/L 24 - 32 05/25/2015 [facility] CHEM PANEL Creatinine Lvl 2.0 mg/dL 0.5 - 1.4 05/25/2015 [facility] CHEM PANEL Sodium Lvl 139 meq/L 135 - 145 05/25/2015 [facility] CHEM PANEL Potassium Lvl 4.1 meq/L 3.5 - 5.1 05/25/2015 [facility] CHEM PANEL Chloride Lvl 103 meq/L 95 - 109 05/25/2015 [facility] HEMATOLOGY MPV 7.7 fL 7.4 - 10.4 05/25/2015 [facility] HEMATOLOGY Platelet 370 K/CMM 133 - 450 05/25/2015 [facility] HEMATOLOGY RDW 14.9 % 11.5 - 14.5 05/25/2015 [facility] HEMATOLOGY RBC 4.27 M/CMM 4.20 - 5.40 05/25/2015 [facility] HEMATOLOGY MCHC 32.0 g/dL 32.0 - 36.0 05/25/2015 [facility] HEMATOLOGY MCH 29.0 pg 27.0 - 31.0 05/25/2015 [facility] HEMATOLOGY MCV 90.9 fL 80.0 - 98.0 05/25/2015 [facility] HEMATOLOGY Hgb 12.4 g/dL 12.0 - 16.0 05/25/2015 [facility] HEMATOLOGY Hct 38.8 % 36.0 - 48.0 05/25/2015 [facility] HEMATOLOGY WBC 10.8 K/CMM 3.7 - 10.4 05/25/2015 [facility] HEMATOLOGY Monocytes # 0.5 K/CMM 0.0 - 0.8 05/25/2015 [facility] HEMATOLOGY Lymphocytes # 4.0 K/CMM 1.0 - 5.5 05/25/2015 [facility] HEMATOLOGY Segs-Bands # 5.8 K/CMM 1.5 - 8.1 05/25/2015 [facility] HEMATOLOGY Basophils 1.2 % 0.0 - 1.0 05/25/2015 [facility] HEMATOLOGY Monocytes 4.8 % 2.0 - 12.0 05/25/2015 [facility] HEMATOLOGY Eosinophils 2.6 % 0.0 - 4.0 05/25/2015 [facility] HEMATOLOGY Lymphocytes 37.5 % 20.0 - 40.0 05/25/2015 [facility] HEMATOLOGY Segs 53.9 % 45.0 - 75.0 05/25/2015 [facility] HEMATOLOGY Basophils # 0.1 K/CMM 0.0 - 0.2 05/25/2015 [facility] HEMATOLOGY Eosinophils # 0.3 K/CMM 0.0 - 0.5 05/25/2015 [facility] CHEM PANEL Phosphorus 7.1 mg/dL 2.5 - 4.5 05/25/2015 [facility] CHEM PANEL Magnesium Lvl 2.0 mg/dL 1.8 - 2.4 05/25/2015 [facility] ELECTROLYTES Sodium Lvl 138 meq/L 135 - 145 05/25/2015 [facility] ELECTROLYTES BUN 40 mg/dL 7 - 22 05/25/2015 [facility] ELECTROLYTES Creatinine Lvl 2.5 mg/dL 0.5 - 1.4 05/25/2015 [facility] ELECTROLYTES Potassium Lvl 4.2 meq/L 3.5 - 5.1 05/25/2015 [facility] ELECTROLYTES Chloride Lvl 103 meq/L 95 - 109 05/25/2015 [facility] ELECTROLYTES CO2 26 meq/L 24 - 32 05/25/2015 [facility] ELECTROLYTES AGAP 13.2 meq/L 10.0 - 20.0 05/25/2015 [facility] ELECTROLYTES Calcium Lvl 8.7 mg/dL 8.5 - 10.5 05/25/2015 [facility] ELECTROLYTES eGFR 21 mL/min/1.73m2 05/25/2015 Result Comment: The eGFR is calculated using the CKD-EPI formula. In most young, healthy individuals the eGFR will be >90 mL/min/1.73m2. The eGFR declines with age. An eGFR of 60-89 may be normal in some populations, particularly the elderly, for whom the CKD-EPI formula has not been extensively validated. Use of the eGFR is not recommended in the following populations: Individuals with unstable creatinine concentrations, including patients and those with serious co-morbid conditions. Patients with extremes in muscle mass or diet. The data above are obtained from the National Kidney Disease Education Program (NKDEP) which additionally recommends that when the eGFR is used in patients with extremes of body mass index for purposes of drug dosing, the eGFR should be multiplied by the estimated BMI. [facility] ELECTROLYTES Glucose Lvl 248 mg/dL 70 - 99 05/25/2015 [facility] SPECIAL CHEMISTRY Hgb A1C 8.6 % <=5.6 % 05/25/2015 [facility] Retroperitoneal limited US Retroperitoneal limited US NAME: STEPH BENTLEY : 1960 SEX: F Ordering Physician: Giselle Gallo US : May 25, 2015 11:34:00 AM. CLINICAL INDICATION: Chronic renal failure / See Clinic Indication Comparison Examination: May 19, 2014 CT. Technique: Multiple longitudinal and transverse real time sonographic images of the kidneys and urinary bladder are obtained. FINDINGS: KIDNEYS: The right kidney measures 11.5 x 5.1 x 5.7 cm. The left kidney measures 11.7 x 5.7 x 5.4 cm. The kidneys are normal in size, shape, contour, and position. The cortices are normal in thickness and echogenicity and the corticomedulluary differentiation is maintained. There is no hydronephrosis and no nephrolithiasis or abnormal perinephric collections. Simple appearing right renal cyst is noted measuring 1.6 x 2.5 cm BLADDER: Scanning through the pelvis reveals the bladder to be partially distended with anechoic urine. ASCITES: No ascites noted. IMPRESSION: Unremarkable renal U/S SL: 24 05/25/2015 - - Read by: Brian Oliver MD Dictated Date/time: 05/25/15 13:00 Electronically Signed by: Brian Oliver MD 05/25/15 13:01 FINAL REPORT [facility] DRUG SCREEN U Opiate Scr Negative *NA* (05/25/15 5:20 AM) Negative 05/25/2015 [facility] DRUG SCREEN U Phencyc Scr Negative *NA* (05/25/15 5:20 AM) Negative 05/25/2015 [facility] DRUG SCREEN UDS Note See Note (05/25/15 5:20 AM) 05/25/2015 [facility] DRUG SCREEN U Amph Scr Negative *NA* (05/25/15 5:20 AM) Negative 05/25/2015 [facility] DRUG SCREEN U Courtney Scr Negative *NA* (05/25/15 5:20 AM) Negative 05/25/2015 [facility] DRUG SCREEN U Cocaine Scr Positive *ABN* (05/25/15 5:20 AM) Negative 05/25/2015 [facility] DRUG SCREEN U Benzodia Scr Negative *NA* (05/25/15 5:20 AM) Negative 05/25/2015 [facility] DRUG SCREEN U Cannab Scr Positive *ABN* (05/25/15 5:20 AM) Negative 05/25/2015 [facility] URINE AND STOOL UA WBC 37 /HPF 0 - 5 05/25/2015 [facility] URINE AND STOOL UA Bacteria Occasional /HPF None Seen /HPF 05/25/2015 [facility] URINE AND STOOL UA RBC 21 /HPF 0 - 2 05/25/2015 [facility] URINE AND STOOL UA Mucus Many /LPF None Seen /LPF 05/25/2015 [facility] URINE AND STOOL UA Hyal Cast 99 /LPF 0 - 2 05/25/2015 [facility] URINE AND STOOL UA Blood Trace *ABN* (05/25/15 5:20 AM) Negative 05/25/2015 [facility] URINE AND STOOL UA Bili Negative *NA* (05/25/15 5:20 AM) Negative 05/25/2015 [facility] URINE AND STOOL UA Glucose 50 mg/dL Negative mg/dL 05/25/2015 [facility] URINE AND STOOL UA Urobilinogen 2.0 mg/dL 0.1 - 1.0 05/25/2015 [facility] URINE AND STOOL UA Ketones Negative mg/dL Negative mg/dL 05/25/2015 [facility] URINE AND STOOL UA Nitrite Negative (05/25/15 5:20 AM) Negative 05/25/2015 [facility] URINE AND STOOL UA Sq Epi Many /LPF Few /LPF 05/25/2015 [facility] URINE AND STOOL UA Leuk Est Moderate *ABN* (05/25/15 5:20 AM) Negative 05/25/2015 [facility] URINE AND STOOL UA Spec Grav 1.018 <=1.030 05/25/2015 [facility] URINE AND STOOL UA Protein 200 mg/dL Negative mg/dL 05/25/2015 [facility] URINE AND STOOL UA pH 5.0 5.0 - 8.0 05/25/2015 [facility] URINE AND STOOL UA Turbidity Marked *ABN* (05/25/15 5:20 AM) Clear 05/25/2015 [facility] URINE AND STOOL UA Color Brown *ABN* (05/25/15 5:20 AM) Yellow 05/25/2015 [facility] CARDIAC ENZYMES Troponin-I null 0.00 - 0.40 05/25/2015 [facility] CARDIAC ENZYMES Total CK 40 unit/L 12 - 191 05/25/2015 [facility] CARDIAC ENZYMES CK MB null 0.5 - 3.6 05/25/2015 [facility] CARDIAC ENZYMES CK MB Index null 0.0 - 2.5 05/25/2015 [facility] CHEM PANEL A/G Ratio 0.7 0.7 - 1.6 05/25/2015 [facility] CHEM PANEL B/C Ratio 14 6 - 25 05/25/2015 [facility] CHEM PANEL Globulin 4.5 g/dL 2.0 - 4.0 05/25/2015 [facility] CHEM PANEL AST 14 unit/L 0 - 37 05/25/2015 [facility] CHEM PANEL Alk Phos 129 unit/L 39 - 136 05/25/2015 [facility] CHEM PANEL Bili Total 0.5 mg/dL 0.2 - 1.3 05/25/2015 [facility] CHEM PANEL Albumin Lvl 3.3 g/dL 3.5 - 5.0 05/25/2015 [facility] CHEM PANEL ALT 34 unit/L 0 - 65 05/25/2015 [facility] CHEM PANEL Total Protein 7.8 g/dL 6.4 - 8.4 05/25/2015 [facility] HEMATOLOGY RDW 14.9 % 11.5 - 14.5 05/25/2015 [facility] HEMATOLOGY Platelet 430 K/CMM 133 - 450 05/25/2015 [facility] HEMATOLOGY MPV 7.2 fL 7.4 - 10.4 05/25/2015 [facility] HEMATOLOGY Hct 42.3 % 36.0 - 48.0 05/25/2015 [facility] HEMATOLOGY MCV 89.6 fL 80.0 - 98.0 05/25/2015 [facility] HEMATOLOGY MCH 28.8 pg 27.0 - 31.0 05/25/2015 [facility] HEMATOLOGY MCHC 32.1 g/dL 32.0 - 36.0 05/25/2015 [facility] HEMATOLOGY Hgb 13.6 g/dL 12.0 - 16.0 05/25/2015 [facility] HEMATOLOGY WBC 12.8 K/CMM 3.7 - 10.4 05/25/2015 [facility] HEMATOLOGY RBC 4.72 M/CMM 4.20 - 5.40 05/25/2015 [facility] HEMATOLOGY Monocytes # 0.7 K/CMM 0.0 - 0.8 05/25/2015 [facility] HEMATOLOGY Lymphocytes # 4.3 K/CMM 1.0 - 5.5 05/25/2015 [facility] HEMATOLOGY Segs-Bands # 7.6 K/CMM 1.5 - 8.1 05/25/2015 [facility] HEMATOLOGY Basophils # 0.1 K/CMM 0.0 - 0.2 05/25/2015 [facility] HEMATOLOGY Eosinophils # 0.2 K/CMM 0.0 - 0.5 05/25/2015 [facility] HEMATOLOGY Basophils 0.6 % 0.0 - 1.0 05/25/2015 [facility] HEMATOLOGY Eosinophils 1.8 % 0.0 - 4.0 05/25/2015 [facility] HEMATOLOGY Monocytes 5.3 % 2.0 - 12.0 05/25/2015 [facility] HEMATOLOGY Lymphocytes 33.3 % 20.0 - 40.0 05/25/2015 [facility] HEMATOLOGY Segs 59.0 % 45.0 - 75.0 05/25/2015 [facility] Brain wo contrast CT Brain wo contrast CT Name: STEPH BENTLEY : 1960 Ordering Physician: Andrea Martinez Brain wo contrast CT: May 25, 2015 05:34:52 AM CLINICAL INDICATION: Headache, high blood pressure COMPARISON EXAM: None. TECHNIQUE: CT images were obtained from the foramen magnum to the vertex without the use of intravenous contrast on a multidetector CT. Coronal and sagittal reconstructions were obtained. The total exam DLP is 1165.94 mGy-cm. FINDINGS: No acute intracranial abnormality is identified such as acute ischemia, intraparenchymal hemorrhage, extra-axial hematoma/fluid collection, midline shift, mass effect, herniation, cerebral edema, or ventriculomegaly. There is mild generalized likely age-related cerebral atrophy. The swartz-white matter differentiation is preserved. The ventricles are normal in size and shape. The sulcal pattern is normal and the basal cisterns are patent. There is no skull fracture. The paranasal sinuses and mastoid air cells are well-pneumatized. If there is continued clinical concern, MRI should be performed for further assessment. IMPRESSION: 1. No CT evidence of acute intracranial or extra-axial process. Mild likely age- related cerebral atrophy. SL: 24 05/25/2015 - - Read by: Tomás Saunders MD Dictated Date/time: 05/25/15 05:49 Electronically Signed by: Tomás Saunders MD 05/25/15 05:[address] [facility] 1view DX Chest 1view DX NAME: STEPH BENTLEY : 1960 SEX: F Ordering Physician: Hardy Jones Chest 1view : May 25, 2015 02:34:00 AM. CLINICAL INDICATION: Syncope. Comparison Examination: 01/23/2015 FINDINGS: Single AP view of the chest is submitted for interpretation. The lungs are clear. Pulmonary vasculature is within normal limits. There is no visible pleural effusion or pneumothorax. Cardiac and mediastinal contours are within normal limits. Bony structures demonstrate no acute process. IMPRESSION: 1. No radiographic evidence of acute cardiopulmonary process. SL: 24 05/25/2015 - - Read by: Tomás Saunders MD Dictated Date/time: 05/25/15 02:50 Electronically Signed by: Tomás Saunders MD 05/25/15 02:51 FINAL REPORT [facility] CARDIAC ENZYMES CK MB Index 3.0 0.0 - 2.5 01/23/2015 [facility] CARDIAC ENZYMES Troponin-I null 0.00 - 0.40 01/23/2015 [facility] CARDIAC ENZYMES Total CK 46 unit/L 12 - 191 01/23/2015 [facility] CARDIAC ENZYMES CK MB 1.4 ng/mL 0.5 - 3.6 01/23/2015 [facility] CHEM PANEL eGFR 89 mL/min/1.73m2 01/23/2015 1Result Comment: The eGFR is calculated using the CKD-EPI formula. In most young, healthy individuals the eGFR will be >90 mL/min/1.73m2. The eGFR declines with age. An eGFR of 60-89 may be normal in some populations, particularly the elderly, for whom the CKD-EPI formula has not been extensively validated. Use of the eGFR is not recommended in the following populations: Individuals with unstable creatinine concentrations, including patients and those with serious co-morbid conditions. Patients with extremes in muscle mass or diet. The data above are obtained from the National Kidney Disease Education Program (NKDEP) which additionally recommends that when the eGFR is used in patients with extremes of body mass index for purposes of drug dosing, the eGFR should be multiplied by the estimated BMI. [facility] CHEM PANEL AGAP 12.0 meq/L 10.0 - 20.0 01/23/2015 [facility] CHEM PANEL CO2 28 meq/L 24 - 32 01/23/2015 [facility] CHEM PANEL Calcium Lvl 8.4 mg/dL 8.5 - 10.5 01/23/2015 [facility] CHEM PANEL Chloride Lvl 105 meq/L 95 - 109 01/23/2015 [facility] CHEM PANEL Potassium Lvl 4.0 meq/L 3.5 - 5.1 01/23/2015 [facility] CHEM PANEL Creatinine Lvl 0.8 mg/dL 0.5 - 1.4 01/23/2015 [facility] CHEM PANEL Sodium Lvl 141 meq/L 135 - 145 01/23/2015 [facility] CHEM PANEL BUN 10 mg/dL 7 - 22 01/23/2015 [facility] CHEM PANEL Glucose Lvl 113 mg/dL 70 - 99 01/23/2015 2Interpretive Data: Adult reference range values reflect the clinical guidelines of the [place] [employer]. [facility] HEMATOLOGY Basophils # 0.1 K/CMM 0.0 - 0.2 01/23/2015 [facility] HEMATOLOGY Lymphocytes # 2.8 K/CMM 1.0 - 5.5 01/23/2015 [facility] HEMATOLOGY Eosinophils # 0.2 K/CMM 0.0 - 0.5 01/23/2015 [facility] HEMATOLOGY Monocytes # 0.6 K/CMM 0.0 - 0.8 01/23/2015 [facility] HEMATOLOGY Segs-Bands # 3.7 K/CMM 1.5 - 8.1 01/23/2015 [facility] Monocytes 7.9 % 2.0 - 12.0 01/23/2015 [facility] HEMATOLOGY Eosinophils 3.2 % 0.0 - 4.0 01/23/2015 [facility] HEMATOLOGY Basophils 1.1 % 0.0 - 1.0 01/23/2015 [facility] HEMATOLOGY Lymphocytes 37.5 % 20.0 - 40.0 01/23/2015 [facility] HEMATOLOGY Segs 50.3 % 45.0 - 75.0 01/23/2015 [facility] MPV 7.3 fL 7.4 - 10.4 01/23/2015 [facility] MCHC 32.3 g/dL 32.0 - 36.0 01/23/2015 [facility] HEMATOLOGY RDW 14.6 % 11.5 - 14.5 01/23/2015 [facility] Platelet 273 K/CMM 133 - 450 01/23/2015 [facility] RBC 4.48 M/CMM 4.20 - 5.40 01/23/2015 [facility] HEMATOLOGY WBC 7.4 K/CMM 3.7 - 10.4 01/23/2015 [facility] HEMATOLOGY MCH 29.4 pg 27.0 - 31.0 01/23/2015 [facility] HEMATOLOGY MCV 91.1 fL 80.0 - 98.0 01/23/2015 [facility] Hct 40.9 % 36.0 - 48.0 01/23/2015 [facility] HEMATOLOGY Hgb 13.2 g/dL 12.0 - 16.0 01/23/2015 [facility] CHEM PANEL eGFR 51 mL/min/1.73m2 05/19/2014 1Result Comment: The eGFR is calculated using the CKD-EPI formula. In most young, healthy individuals the eGFR will be >90 mL/min/1.73m2. The eGFR declines with age. An eGFR of 60-89 may be normal in some populations, particularly the elderly, for whom the CKD-EPI formula has not been extensively validated. Use of the eGFR is not recommended in the following populations: Individuals with unstable creatinine concentrations, including patients and those with serious co-morbid conditions. Patients with extremes in muscle mass or diet. The data above are obtained from the National Kidney Disease Education Program (NKDEP) which additionally recommends that when the eGFR is used in patients with extremes of body mass index for purposes of drug dosing, the eGFR should be multiplied by the estimated BMI. [facility] CHEM PANEL AST 18 unit/L 0 - 37 05/19/2014 [facility] CHEM PANEL Total Protein 7.3 g/dL 6.4 - 8.4 05/19/2014 [facility] CHEM PANEL Bili Total 0.3 mg/dL 0.2 - 1.3 05/19/2014 [facility] CHEM PANEL Alk Phos 84 unit/L 39 - 136 05/19/2014 [facility] CHEM PANEL ALT 25 unit/L 0 - 65 05/19/2014 [facility] CHEM PANEL Calcium Lvl 8.8 mg/dL 8.5 - 10.5 05/19/2014 [facility] CHEM PANEL Albumin Lvl 3.3 g/dL 3.5 - 5.0 05/19/2014 [facility] CHEM PANEL Creatinine Lvl 1.2 mg/dL 0.5 - 1.4 05/19/2014 [facility] CHEM PANEL Chloride Lvl 101 meq/L 95 - 109 05/19/2014 [facility] CHEM PANEL Sodium Lvl 140 meq/L 135 - 145 05/19/2014 [facility] CHEM PANEL Potassium Lvl 4.2 meq/L 3.5 - 5.1 05/19/2014 [facility] CHEM PANEL CO2 33 meq/L 24 - 32 05/19/2014 [facility] CHEM PANEL Glucose Lvl 144 mg/dL 70 - 99 05/19/2014 2Interpretive Data: Adult reference range values reflect the clinical guidelines of the [place] [employer]. [facility] CHEM PANEL BUN 21 mg/dL 7 - 22 05/19/2014 [facility] CHEM PANEL A/G Ratio 0.8 0.7 - 1.6 05/19/2014 [facility] CHEM PANEL B/C Ratio 18 6 - 25 05/19/2014 [facility] CHEM PANEL Globulin 4.0 g/dL 2.0 - 4.0 05/19/2014 [facility] CHEM PANEL AGAP 10.2 meq/L 10.0 - 20.0 05/19/2014 [facility] CHEM PANEL Lipase Lvl 148 unit/L 73 - 393 05/19/2014 [facility] CHEM PANEL Amylase Lvl 28 unit/L 25 - 115 05/19/2014 [facility] HEMATOLOGY RDW 14.1 % 11.5 - 14.5 05/19/2014 [facility] MCHC 33.3 g/dL 32.0 - 36.0 05/19/2014 [facility] MCH 30.0 pg 27.0 - 31.0 05/19/2014 [facility] MCV 90.0 fL 81.0 - 99.0 05/19/2014 [facility] Platelet 317 K/CMM 133 - 450 05/19/2014 [facility] WBC 8.9 K/CMM 3.7 - 10.4 05/19/2014 [facility] Hct 39.5 % 36.0 - 48.0 05/19/2014 [facility] Hgb 13.2 g/dL 12.0 - 16.0 05/19/2014 [facility] RBC 4.40 M/CMM 4.20 - 5.40 05/19/2014 [facility] MPV 6.9 fL 7.4 - 10.4 05/19/2014 [facility] HEMATOLOGY Basophils 0.7 % 0.0 - 1.0 05/19/2014 [facility] HEMATOLOGY Eosinophils 3.4 % 0.0 - 4.0 05/19/2014 [facility] HEMATOLOGY Segs-Bands # 4.4 K/CMM 1.5 - 8.1 05/19/2014 [facility] HEMATOLOGY Lymphocytes # 3.4 K/CMM 1.0 - 5.5 05/19/2014 [facility] HEMATOLOGY Monocytes 6.8 % 2.0 - 12.0 05/19/2014 [facility] HEMATOLOGY Lymphocytes 38.8 % 20.0 - 40.0 05/19/2014 [facility] HEMATOLOGY Segs 50.3 % 45.0 - 75.0 05/19/2014 [facility] HEMATOLOGY Monocytes # 0.6 K/CMM 0.0 - 0.8 05/19/2014 [facility] HEMATOLOGY Eosinophils # 0.3 K/CMM 0.0 - 0.5 05/19/2014 [facility] HEMATOLOGY Basophils # 0.1 K/CMM 0.0 - 0.2 05/19/2014 [facility] URINE AND STOOL UA Sq Epi None Seen (05/19/14 1:26 AM) Few 05/19/2014 [facility] URINE AND STOOL UA RBC 1 /HPF 0 - 2 05/19/2014 [facility] URINE AND STOOL UA Blood Negative (05/19/14 1:26 AM) Negative 05/19/2014 [facility] URINE AND STOOL UA Urobilinogen 0.2 EU/dL 0.1 - 1.0 05/19/2014 [facility] URINE AND STOOL UA Protein Negative (05/19/14 1:26 AM) Negative 05/19/2014 [facility] URINE AND STOOL UA Glucose Negative (05/19/14 1:26 AM) Negative 05/19/2014 [facility] URINE AND STOOL UA Ketones Negative *NA* (05/19/14 1:26 AM) Negative 05/19/2014 [facility] URINE AND STOOL UA pH 6.0 5.0 - 8.0 05/19/2014 [facility] URINE AND STOOL UA Color Yellow *NA* (05/19/14 1:26 AM) Yellow 05/19/2014 [facility] URINE AND STOOL UA Turbidity Clear (05/19/14 1:26 AM) Clear 05/19/2014 [facility] URINE AND STOOL UA Spec Grav >=1.030 *ABN* (05/19/14 1:26 AM) <=1.030 05/19/2014 [facility] URINE AND STOOL UA Leuk Est Negative (05/19/14 1:26 AM) Negative 05/19/2014 [facility] URINE AND STOOL UA Nitrite Negative (05/19/14 1:26 AM) Negative 05/19/2014 [facility] URINE AND STOOL UA Bili Negative *NA* (05/19/14 1:26 AM) Negative 05/19/2014 [facility] Vital Signs Vital Sign Value Date Comments Source Temperature Oral (F) 97.8 F 03/21/2016 [facility] Heart Rate 99 03/21/2016 [facility] Respitory Rate 17 03/21/2016 [facility] Systolic (mm Hg) 128 03/21/2016 [facility] Diastolic (mm Hg) 80 03/21/2016 [facility] Weight 95.455 03/21/2016 [facility] Height 157.48 cm 03/21/2016 [facility] Temperature Oral (F) 98.2 F 03/21/2016 [facility] BMI Calculated 38.49 03/21/2016 [facility] Heart Rate 102 03/21/2016 [facility] Respitory Rate 18 03/21/2016 [facility] Systolic (mm Hg) 163 03/21/2016 [facility] Diastolic (mm Hg) 92 03/21/2016 [facility] Systolic (mm Hg) 115 03/17/2016 [facility] Diastolic (mm Hg) 70 03/17/2016 [facility] Heart Rate 94 03/17/2016 [facility] Respitory Rate 16 03/17/2016 [facility] Temperature Oral (F) 98.0 F 03/17/2016 [facility] Height 157.48 cm 03/17/2016 [facility] Respitory Rate 16 03/17/2016 [facility] Temperature Oral (F) 98.0 F 03/17/2016 [facility] Heart Rate 107 03/17/2016 [facility] Systolic (mm Hg) 119 03/17/2016 [facility] Diastolic (mm Hg) 62 03/17/2016 [facility] Weight 109.091 03/17/2016 [facility] BMI Calculated 43.99 03/17/2016 [facility] Respitory Rate 20 11/26/2015 [facility] Systolic (mm Hg) 144 11/26/2015 [facility] Diastolic (mm Hg) 84 11/26/2015 [facility] Temperature Oral (F) 98 F 11/26/2015 [facility] Heart Rate 90 11/26/2015 [facility] Systolic (mm Hg) 140 11/26/2015 [facility] Diastolic (mm Hg) 83 11/26/2015 [facility] Temperature Oral (F) 98 F 11/26/2015 [facility] Heart Rate 100 11/26/2015 [facility] BMI Calculated 36.1 11/26/2015 [facility] Height 170.18 cm 11/26/2015 [facility] Respitory Rate 18 11/26/2015 [facility] Weight 104.545 11/26/2015 [facility] Heart Rate 96 11/25/2015 [facility] Temperature Oral (F) 98.0 F 11/25/2015 [facility] Respitory Rate 16 11/25/2015 [facility] Systolic (mm Hg) 136 11/25/2015 [facility] Diastolic (mm Hg) 86 11/25/2015 [facility] Systolic (mm Hg) 132 11/24/2015 [facility] Diastolic (mm Hg) 79 11/24/2015 [facility] Heart Rate 92 11/24/2015 [facility] Temperature Oral (F) 98.0 F 11/24/2015 [facility] Respitory Rate 16 11/24/2015 [facility] Respitory Rate 16 11/24/2015 [facility] Temperature Oral (F) 98.3 F 11/24/2015 [facility] Heart Rate 88 11/24/2015 [facility] Systolic (mm Hg) 150 11/24/2015 [facility] Diastolic (mm Hg) 96 11/24/2015 [facility] Weight 100 11/23/2015 [facility] BMI Calculated 40.32 11/23/2015 [facility] Height 157.48 cm 11/23/2015 [facility] Temperature Oral (F) 97.4 F 05/26/2015 [place] Diastolic (mm Hg) 78 05/26/2015 [facility] Systolic (mm Hg) 136 05/26/2015 [facility] Respitory Rate 20 05/26/2015 [facility] Temperature Oral (F) 97.7 F 05/26/2015 [facility] Respitory Rate 20 05/26/2015 [facility] Systolic (mm Hg) 162 05/26/2015 [facility] Diastolic (mm Hg) 85 05/26/2015 [facility] Respitory Rate 19 05/26/2015 [facility] Temperature Oral (F) 97.7 F 05/26/2015 [facility] Diastolic (mm Hg) 90 05/26/2015 [facility] Systolic (mm Hg) 163 05/26/2015 [facility] Heart Rate 86 05/25/2015 [facility] Heart Rate 85 05/25/2015 [facility] Height 157.48 cm 05/25/2015 [facility] BMI Calculated 34.82 05/25/2015 [facility] Weight 86.364 05/25/2015 [facility] Heart Rate 70 05/25/2015 [facility] Height 157.48 cm 05/25/2015 [facility] Weight 86.364 05/25/2015 [facility] BMI Calculated 34.82 05/25/2015 [facility] Systolic (mm Hg) 165 01/23/2015 [facility] Diastolic (mm Hg) 95 01/23/2015 [facility] Respitory Rate 28 01/23/2015 [facility] Temperature Oral (F) 98.0 F 01/23/2015 [facility] Heart Rate 84 01/23/2015 [facility] Respitory Rate 14 01/23/2015 [facility] Temperature Oral (F) 98.2 F 01/23/2015 [facility] Height 157.48 cm 01/23/2015 [facility] BMI Calculated 36.66 01/23/2015 [facility] Weight 90.909 01/23/2015 [facility] Heart Rate 85 01/23/2015 [facility] Systolic (mm Hg) 163 01/23/2015 [facility] Diastolic (mm Hg) 95 01/23/2015 [facility] Respitory Rate 18 01/23/2015 [facility] Diastolic (mm Hg) 88 05/19/2014 [facility] Systolic (mm Hg) 167 05/19/2014 [facility] Respitory Rate 18 05/19/2014 [facility] Heart Rate 90 05/19/2014 [facility] Temperature Oral (F) 98.1 F 05/19/2014 [facility] Height 157.48 cm 05/19/2014 [facility] Weight 100 05/19/2014 [facility] BMI Calculated 40.32 05/19/2014 [facility] Respitory Rate 18 05/19/2014 [facility] Heart Rate 91 05/19/2014 [facility] Diastolic (mm Hg) 75 05/19/2014 [facility] Systolic (mm Hg) 173 05/19/2014 [facility] Temperature Oral (F) 98.6 F 05/19/2014 [facility] Encounters Location Location Details Encounter Type Encounter Number Reason For Visit Attending Provider ADM Date DC Date Status Source [facility] [id number] Duane Chavez 05/19/2014 05/19/2014 [facility] [id number] Valeria Villa 01/23/2015 01/23/2015 [facility] OBS Observation Patient [id number] Judy Clintonu 05/25/2015 05/26/2015 [facility] OBS Observation Patient [id number] Gato Bullard 11/23/2015 11/25/2015 [facility] [id number] Ned Gina 11/26/2015 11/26/2015 [facility] [id number] Heidy Navarroen 03/17/2016 03/17/2016 [facility] [id number] Evelyn Mobley 03/21/2016 03/21/2016 [facility] Procedures Procedure Code Date Perfomer Comments Source Cardiac catheterization [id number] [facility]
--- OUTSIDE RECORDS SUMMARY | 2018-09-16 08:14 | XMS REPORT | Summary of Care ---
Author Organization Unknown Address Unknown Phone Unavailable Encounter RYLEE Mobley(JAY) [id number] Date(s): 05/19/14 - 05/19/14 [facility] [address] Discharge Diagnosis: Acute gastritis Discharge Disposition: Home Physician Attending: Duane Chavez MD Reason for Visit ABDOMINAL PAIN Vital Signs Most recent to 1 2 oldest [Reference Range]: Height 157.48 cm (05/19/14 1:04 AM) Temperature Oral 98.1 DegF 98.6 DegF [96.4-99.1 DegF] (05/19/14 7:53 AM) (05/19/14 1:04 AM) Systolic Blood 167 mmHg 173 mmHg Pressure [90-140 *HI* *HI* mmHg] (05/19/14 7:53 AM) (05/19/14 1:04 AM) Diastolic Blood 88 mmHg 75 mmHg Pressure [60-90 (05/19/14 7:53 AM) (05/19/14 1:04 AM) mmHg] Respiratory Rate 18 BRMIN 18 BRMIN [14-20 BRMIN] (05/19/14 7:53 AM) (05/19/14 1:04 AM) Peripheral Pulse 90 bpm 91 bpm Rate [60-100 bpm] (05/19/14 7:53 AM) (05/19/14 1:04 AM) Weight 100 kg (05/19/14 1:04 AM) Body Mass Index 40.32 m2 (05/19/14 1:04 AM) Problem List No data available for this section Allergies, Adverse Reactions, Alerts Substance Reaction Severity Status NKDA Active NKFA Active Medications Zantac 300 oral tablet 300 mg=1 tab, PO, Daily, # 30 tab, 0 Refill(s) Start Date: 05/19/14 Status: Ordered Results ELECTROLYTES Most recent to 1 oldest [Reference Range]: Sodium Lvl [135-145 140 mEq/L mEq/L] (05/19/14 1:26 AM) Potassium Lvl 4.2 mEq/L [3.5-5.1 mEq/L] (05/19/14 1:26 AM) Chloride Lvl [95-109 101 mEq/L mEq/L] (05/19/14 1:26 AM) CO2 [24-32 mEq/L] 33 mEq/L *HI* (05/19/14 1:26 AM) AGAP [10.0-20.0 10.2 mEq/L mEq/L] (05/19/14 1:26 AM) CHEM PANEL Most recent to 1 oldest [Reference Range]: Creatinine Lvl 1.2 mg/dL [0.5-1.4 mg/dL] (05/19/14 1:26 AM) eGFR 51 mL/min/1.73m2 1 *NA* (05/19/14 1:26 AM) BUN [7-22 mg/dL] 21 mg/dL (05/19/14 1:26 AM) B/C Ratio [6-25] 18 (05/19/14 1:26 AM) Glucose Lvl [70-99 144 mg/dL 2 mg/dL] *HI* (05/19/14 1:26 AM) Total Protein 7.3 g/dL [6.4-8.4 g/dL] (05/19/14 1:26 AM) Albumin Lvl [3.5-5.0 3.3 g/dL g/dL] *LOW* (05/19/14 1:26 AM) Globulin [2.0-4.0 4.0 g/dL g/dL] (05/19/14 1:26 AM) A/G Ratio [0.7-1.6] 0.8 (05/19/14 1:26 AM) Calcium Lvl 8.8 mg/dL [8.5-10.5 mg/dL] (05/19/14 1:26 AM) ALT [0-65 unit/L] 25 unit/L (05/19/14 1:26 AM) AST [0-37 unit/L] 18 unit/L (05/19/14 1:26 AM) Alk Phos [39-136 84 unit/L unit/L] (05/19/14 1:26 AM) Bili Total [0.2-1.3 0.3 mg/dL mg/dL] (05/19/14 1:26 AM) Amylase Lvl [25-115 28 unit/L unit/L] (05/19/14 1:26 AM) Lipase Lvl [73-393 148 unit/L unit/L] (05/19/14 1:26 AM) 1Result Comment: The eGFR is calculated using [...] from the National Kidney Disease Education Program ( NKDEP) which additionally recommends that when the eGFR is used in patients with extremes of body mass index for purposes of drug dosing, the eGFR should be mul tiplied by the estimated BMI. 2Interpretive Data: Adult reference range values reflect the clinical guidelines of the [place] [employer]. URINE AND STOOL Most recent to 1 oldest [Reference Range]: UA Turbidity [Clear] Clear (05/19/14 1:26 AM) UA Color [Yellow] Yellow *NA* (05/19/14 1:26 AM) UA pH [5.0-8.0] 6.0 (05/19/14 1:26 AM) UA Spec Grav >=1.030 [<=1.030] *ABN* (05/19/14 1:26 AM) UA Glucose Negative [Negative] (05/19/14 1:26 AM) UA Blood [Negative] Negative (05/19/14 1:26 AM) UA Ketones Negative [Negative] *NA* (05/19/14 1:26 AM) UA Protein Negative [Negative] (05/19/14 1:26 AM) UA Urobilinogen 0.2 EU/dL [0.1-1.0 EU/dL] (05/19/14 1:26 AM) UA Bili [Negative] Negative *NA* (05/19/14 1:26 AM) UA Leuk Est Negative [Negative] (05/19/14 1:26 AM) UA Nitrite Negative [Negative] (05/19/14 1:26 AM) UA RBC [0-2 /HPF] 1 /HPF (05/19/14 1:26 AM) UA Sq Epi [Few] None Seen (05/19/14 1:26 AM) HEMATOLOGY Most recent to 1 oldest [Reference Range]: WBC [3.7-10.4 K/CMM] 8.9 K/CMM (05/19/14 1:26 AM) RBC [4.20-5.40 4.40 M/CMM M/CMM] (05/19/14 1:26 AM) Hgb [12.0-16.0 g/dL] 13.2 g/dL (05/19/14 1:26 AM) Hct [36.0-48.0 %] 39.5 % (05/19/14 1:26 AM) MCV [81.0-99.0 fL] 90.0 fL (05/19/14 1:26 AM) MCH [27.0-31.0 pg] 30.0 pg (05/19/14 1:26 AM) MCHC [32.0-36.0 33.3 g/dL g/dL] (05/19/14 1:26 AM) RDW [11.5-14.5 %] 14.1 % (05/19/14 1:26 AM) Platelet [133-450 317 K/CMM K/CMM] (05/19/14 1:26 AM) MPV [7.4-10.4 fL] 6.9 fL *LOW* (05/19/14 1:26 AM) Segs [45.0-75.0 %] 50.3 % (05/19/14 1:26 AM) Lymphocytes 38.8 % [20.0-40.0 %] (05/19/14 1:26 AM) Monocytes [2.0-12.0 6.8 % %] (05/19/14 1:26 AM) Eosinophils [0.0-4.0 3.4 % %] (05/19/14 1:26 AM) Basophils [0.0-1.0 0.7 % %] (05/19/14 1:26 AM) Segs-Bands # 4.4 K/CMM [1.5-8.1 K/CMM] (05/19/14 1:26 AM) Lymphocytes # 3.4 K/CMM [1.0-5.5 K/CMM] (05/19/14 1:26 AM) Monocytes # [0.0-0.8 0.6 K/CMM K/CMM] (05/19/14 1:26 AM) Eosinophils # 0.3 K/CMM [0.0-0.5 K/CMM] (05/19/14 1:26 AM) Basophils # [0.0-0.2 0.1 K/CMM K/CMM] (05/19/14 1:26 AM) Medications Administered During Your Visit No data available for this section Immunizations No data available for this section Social History Social History Type Response
--- OUTSIDE RECORDS SUMMARY | 2018-09-16 08:15 | XMS REPORT | Summary of Care ---
Author Author [facility] Organization [facility] Address Unknown Phone Unavailable Encounter RYLEE Mobley(JAY) [id number] Date(s): 03/17/16 - 03/17/16 [facility] [address] [place] [address]- [phone] Discharge Diagnosis: Methicillin resistant Staphylococcus aureus infection, unsp ecified site Discharge Diagnosis: Candidiasis of vulva and vagina Discharge Diagnosis: Other sites of candidiasis Discharge Disposition: Home Attending Physician: Heidy Shah DO Vital Signs Most recent to 1 2 oldest [Reference Range]: Height 157.48 cm (03/17/16 3:01 PM) Temperature Oral 98.0 DegF 98.0 DegF [96.4-99.1 DegF] (03/17/16 4:00 PM) (03/17/16 3:01 PM) Blood Pressure 115/70 mmHg 119/62 mmHg [90-140/60-90 mmHg] (03/17/16 4:00 PM) (03/17/16 3:01 PM) Respiratory Rate 16 BRMIN 16 BRMIN [14-20 BRMIN] (03/17/16 4:00 PM) (03/17/16 3:01 PM) Peripheral Pulse 94 bpm 107 bpm Rate [60-100 bpm] (03/17/16 4:00 PM) *HI* (03/17/16 3:01 PM) Weight 109.091 kg (03/17/16 3:01 PM) Body Mass Index 43.99 m2 (03/17/16 3:01 PM) Problem List Condition Effective Dates Status Health Status Informant Back pain(Confirmed) Resolved DM (diabetes Resolved mellitus)(Confirmed) H/O: Resolved migraine(Confirmed) HTN - Resolved Hypertension(Confirm ed) Mass in the Resolved abdomen(Confirmed) Allergies, Adverse Reactions, Alerts Substance Reaction Severity Status NKDA Active NKFA Active Medications acetaminophen-hydrocodone 325 mg-5 mg oral tablet 1 tab, Route: PO, Dosing Weight 109.091, kg, ONCE, STAT, Start date: 03/17/16 15 :47:00 CDT, Stop date: 03/17/16 15:47:00 CDT Start Date: 03/17/16 Stop Date: 03/17/16 Status: Completed Bactrim DS 800 mg- 160 mg oral tablet 1 tab, PO, BID, X 10 day, # 20 tab, 0 Refill(s) Start Date: 03/17/16 Stop Date: 03/27/16 Status: Ordered clotrimazole topical 1% cream 1 appl, TOP, BID, apply to affected area for 2 to 4 weeks, X 7 day, # 60 gm, 0 R efill(s) Start Date: 03/17/16 Stop Date: 03/24/16 Status: Ordered Diflucan 150 mg oral tablet 150 mg=1 tab, PO, qWeek, # 2 tab, 0 Refill(s) Start Date: 03/17/16 Status: Ordered diphenhydrAMINE 50 mg, Route: PO, Drug form: CAP, ONCE, Dosing Weight 109.091, kg, Priority: STA T, Start date: 03/17/16 15:47:00 CDT, Stop date: 03/17/16 15:47:00 CDT Start Date: 03/17/16 Stop Date: 03/17/16 Status: Completed doxycycline hyclate 100 mg oral tablet 100 mg=1 tab, PO, Q12H, X 10 day, # 20 tab, 0 Refill(s) Start Date: 03/17/16 Stop Date: 03/27/16 Status: Ordered mupirocin topical 2% ointment 1 appl, TOP, TID, X 5 day, # 22 gm, 0 Refill(s) Start Date: 03/17/16 Stop Date: 03/22/16 Status: Ordered nystatin 100,000 units/mL oral suspension 500,000 unit=5 mL, PO, Q6H, Swish and Swallow, X 10 day, # 200 mL, 0 Refill(s) Start Date: 03/17/16 Stop Date: 03/27/16 Status: Ordered Results No data available for this section Immunizations Vaccine Date Refusal Reason pneumococcal 23-valent vaccine 05/25/15 Procedures Procedure Date Related Diagnosis Body Site Cardiac catheterization Social History Social History Type Response Substance Abuse Use: Current. Type: Marijuana. Recreational Drug Route: Oral. Frequency: 1-2 times per week. Alcohol Past Smoking Status Current every day smoker; Type: Cigarettes; Exposure to Tobacco Smoke None; Cigarette Smoking Last 365 Days No; Reg Smoking Cessation Counseling No Assessment and Plan No data available for this section
--- OUTSIDE RECORDS SUMMARY | 2018-09-16 08:15 | XMS REPORT | Summary of Care ---
Author Author [facility] Organization [facility] Address Unknown Phone Unavailable Encounter RYLEE Mobley(JAY) [id number] Date(s): 11/26/15 - 11/26/15 [facility] [address] [place] [address]- [phone] Discharge Diagnosis: Urinary tract infection, site not specified Discharge Disposition: Home Attending Physician: Ned Fuentes MD Vital Signs Most recent to 1 2 oldest [Reference Range]: Height 170.18 cm (11/26/15 10:14 AM) Temperature Oral 98 DegF 98 DegF [96.4-99.1 DegF] (11/26/15 12:10 PM) (11/26/15 10:14 AM) Blood Pressure 144/84 mmHg 140/83 mmHg [90-140/60-90 mmHg] *HI* (11/26/15 10:14 AM) (11/26/15 12:10 PM) Respiratory Rate 20 BRMIN 18 BRMIN [14-20 BRMIN] (11/26/15 12:10 PM) (11/26/15 10:14 AM) Peripheral Pulse 90 bpm 100 bpm Rate [60-100 bpm] (11/26/15 12:10 PM) (11/26/15 10:14 AM) Weight 104.545 kg (11/26/15 10:14 AM) Body Mass Index 36.1 m2 (11/26/15 10:14 AM) Problem List Condition Effective Dates Status Health Status Informant Back pain(Confirmed) Resolved DM (diabetes Resolved mellitus)(Confirmed) H/O: Resolved migraine(Confirmed) HTN - Resolved Hypertension(Confirm ed) Mass in the Resolved abdomen(Confirmed) Allergies, Adverse Reactions, Alerts Substance Reaction Severity Status NKDA Active NKFA Active Medications Cipro 500 mg oral tablet 500 mg=1 tab, PO, Q12H, X 10 day, # 20 tab, 0 Refill(s) Start Date: 11/26/15 Stop Date: 12/06/15 Status: Ordered Diflucan 150 mg oral tablet 150 mg=1 tab, PO, ONCE, # 1 tab, 0 Refill(s) Start Date: 11/26/15 Status: Ordered Lidocaine Viscous 2% mucous membrane solution 0.1 gm, 5 mL, Route: TOP, ONCE, Priority: Stat, Start date: 11/26/15 10:49:00, S top date: 11/26/15 10:49:00 Start Date: 11/26/15 Stop Date: 11/26/15 Status: Completed Junior 10/325 oral tablet 1 tab, Route: PO, Drug Form: TAB, Dosing Weight 104.545, kg, ONCE, STAT, Start d ate: 11/26/15 11:07:00, Stop date: 11/26/15 11:07:00 Start Date: 11/26/15 Stop Date: 11/26/15 Status: Completed Rocephin 1 gm, Route: IM, Drug form: PDR/INJ, ONCE, Dosing Weight 104.545, kg, Priority: STAT, Start date: 11/26/15 11:21:00, Stop date: 11/26/15 11:21:00 Start Date: 11/26/15 Stop Date: 11/26/15 Status: Completed Results URINE AND STOOL Most recent to 1 oldest [Reference Range]: UA Turbidity [Clear] Clear (11/26/15 11:01 AM) UA Color Josefa *NA* (11/26/15 11:01 AM) UA pH [5.0-8.0] 5.0 (11/26/15 11:01 AM) UA Spec Grav 1.030 [<=1.030] (11/26/15 11:01 AM) UA Glucose [Negative 500 mg/dL mg/dL] *ABN* (11/26/15 11:01 AM) UA Blood [Negative] Moderate *ABN* (11/26/15 11:01 AM) UA Ketones [Negative Negative mg/dL mg/dL] *NA* (11/26/15 11:01 AM) UA Protein [Negative 100 mg/dL mg/dL] *ABN* (11/26/15 11:01 AM) UA Urobilinogen 4.0 mg/dL [0.1-1.0 mg/dL] *HI* (11/26/15 11:01 AM) UA Bili [Negative] Negative *NA* (11/26/15 11:01 AM) UA Leuk Est Trace [Negative] *ABN* (11/26/15 11:01 AM) UA Nitrite Positive [Negative] *ABN* (11/26/15 11:01 AM) UA WBC [0-5 /HPF] 28 /HPF *HI* (11/26/15 11:01 AM) UA RBC [0-2 /HPF] 49 /HPF *HI* (11/26/15 11:01 AM) UA Bacteria [None Few /HPF Seen /HPF] *NA* (11/26/15 11:01 AM) UA Sq Epi [Few /LPF] Occasional /LPF *NA* (11/26/15 11:01 AM) UA Mucus [None Seen Few /LPF /LPF] *NA* (11/26/15 11:01 AM) MOLECULAR DIAGNOSTIC Most recent to 1 oldest [Reference Range]: Source APTIMA Endocervix *NA* (11/26/15 11:01 AM) N gonorrhea by Amp Negative Det (APTIMA) *NA* [Negative] (11/26/15 11:01 AM) C trachomatis by Amp Negative Det (APTIMA) *NA* [Negative] (11/26/15 11:01 AM) Immunizations Vaccine Date Refusal Reason pneumococcal 23-valent vaccine 05/25/15 Procedures Procedure Date Related Diagnosis Body Site Cardiac catheterization Social History Social History Type Response Substance Abuse Use: None. Alcohol Past Smoking Status Current every day smoker; Type: Cigarettes; Exposure to Tobacco Smoke None; Cigarette Smoking Last 365 Days No; Reg Smoking Cessation Counseling No Assessment and Plan No data available for this section
--- OUTSIDE RECORDS SUMMARY | 2018-09-16 08:15 | XMS REPORT | Summary of Care ---
Author Author [facility] Organization [facility] Address Unknown Phone Unavailable Encounter RYLEE Mobley(JAY) [id number] Date(s): 05/25/15 - 05/26/[address] [address]- Discharge Disposition: Home Attending Physician: Judy Harris MD Admitting Physician: Judy Harris MD Vital Signs 1 2 3 Most recent to oldest [Reference Range]: 157.48 cm (05/25/15 6:31 AM) 157.48 cm (05/25/15 1:57 AM) Height 1 2 3 Most recent to oldest [Reference Range]: 97.4 DegF (05/26/15 8:44 AM) 97.7 DegF (05/26/15 4:37 AM) 97.7 DegF (05/25/15 8:52 PM) Temperature Oral [96.4-99.1 DegF] 1 2 3 Most recent to oldest [Reference Range]: 162/85 mmHg 1 *HI* (05/26/15 4:37 AM) Blood Pressure [90-140/60-90 mmHg] 136 mmHg (05/26/15 8:44 AM) 163 mmHg *HI* (05/25/15 8:52 PM) Systolic Blood Pressure [90-140 mmHg] 1 2 3 Most recent to oldest [Reference Range]: 78 mmHg (05/26/15 8:44 AM) 90 mmHg (05/25/15 8:52 PM) Diastolic Blood Pressure [60-90 mmHg] 1 2 3 Most recent to oldest [Reference Range]: 20 BRMIN (05/26/15 8:44 AM) 20 BRMIN (05/26/15 4:37 AM) 19 BRMIN (05/25/15 8:52 PM) Respiratory Rate [14-20 BRMIN] 1 2 3 Most recent to oldest [Reference Range]: 86 bpm (05/25/15 3:30 PM) 85 bpm (05/25/15 8:00 AM) 70 bpm (05/25/15 6:25 AM) Peripheral Pulse Rate [60-100 bpm] 1 2 3 Most recent to oldest [Reference Range]: 86.364 kg (05/25/15 6:31 AM) 86.364 kg (05/25/15 1:57 AM) Weight 1 2 3 Most recent to oldest [Reference Range]: 34.82 m2 (05/25/15 6:31 AM) 34.82 m2 (05/25/15 1:57 AM) Body Mass Index 1Result Comment: Pt in pain. Tar Heel given. Problem List Condition Effective Dates Status Health Status Informant Back pain(Confirmed) Resolved DM (diabetes Resolved mellitus)(Confirmed) H/O: Resolved migraine(Confirmed) HTN - Resolved Hypertension(Confirm ed) Mass in the Resolved abdomen(Confirmed) Allergies, Adverse Reactions, Alerts Substance Reaction Severity Status NKDA Active NKFA Active Medications Cipro 250 mg, 1 tab, Route: PO, Drug form: TAB, [id number], Dosing Weight 86.364, kg, Sta rt date: 05/25/15 8:00:00, Duration: 3 day, Stop date: 05/27/15 20:00:00 Notes: May interfere w/enteral feedings - Take 1 hr before or 2 hrs after antac ids, dairy pdt & minerals. On empty stomach. Start Date: 05/25/15 Stop Date: 05/26/15 Status: Discontinued Dextrose 50% Syringe 12.5 gm, 25 mL, Route: IVP, Drug Form: INJ, Dosing Weight 86.364, kg, PRN, PRN B lood Glucose Results, Start date: 05/25/15 6:00:00, Duration: 30 day, Stop date: 06/24/15 5:59:00 Start Date: 05/25/15 Stop Date: 05/26/15 Status: Discontinued Dextrose 50% Syringe 25 gm, 50 mL, Route: IVP, Drug Form: INJ, Dosing Weight 86.364, kg, PRN, PRN Blo od Glucose Results, Start date: 05/25/15 6:00:00, Duration: 30 day, Stop date: 0 8/22/15 5:59:00 Start Date: 05/25/15 Stop Date: 05/26/15 Status: Discontinued DuoNeb inhalation solution 3 mL, Route: INHALATION, Drug Form: SOLN, Dosing Weight 86.364, kg, RQ6H, NOW, S tart date: 05/25/15 6:20:00, Duration: 30 day, Stop date: 06/24/15 2:00:00 Notes: (Same as: Duoneb) Start Date: 05/25/15 Stop Date: 05/26/15 Status: Discontinued famotidine 40 mg, PO, BID, # 60 tab, 0 Refill(s) Start Date: 05/25/15 Stop Date: 06/24/15 Status: Ordered Flagyl 500 mg oral tablet 500 mg=1 tab, PO, Q12H, # 30 tab, 0 Refill(s) Start Date: 05/25/15 Stop Date: 05/26/15 Status: Discontinued folic acid 1 mg, 1 tab, Route: PO, Drug form: TAB, Daily, Dosing Weight 86.364, kg, Start d ate: 05/25/15 9:00:00, Duration: 30 day, Stop date: 06/23/15 9:00:00 Notes: (Same as: Folvite) Start Date: 05/25/15 Stop Date: 05/26/15 Status: Discontinued glucagon 1 mg, Route: IM, Drug form: PDR/INJ, PRN, Dosing Weight 86.364, kg, PRN Blood Gl ucose Results, Start date: 05/25/15 6:00:00, Duration: 30 day, Stop date: 5:59:00 Start Date: 05/25/15 Stop Date: 05/26/15 Status: Discontinued heparin 5,000 unit, 1 mL, Route: SUB-Q, Drug form: INJ, Q12H, Dosing Weight 86.364, kg, Start date: 05/25/15 9:00:00, Duration: 30 day, Stop date: 06/23/15 21:00:00 Notes: porcine heparin Start Date: 05/25/15 Stop Date: 05/26/15 Status: Discontinued insulin aspart 3 unit, 0.03 mL, Route: SUB-Q, Drug form: SOLN, Bedtime, Dosing Weight 86.364, k g, PRN Blood Glucose Results, Start date: 05/25/15 6:00:00, Duration: 30 day, St op date: 06/24/15 5:59:00 Notes: Roll in palms of hands gently; Do not shake vigorously. (Same as: NovoLO G)"single patient use only" Stable for 28 days at room temperature.Expires in _ ____ days from Date Start Date: 05/25/15 Stop Date: 05/26/15 Status: Discontinued insulin aspart 1 unit, 0.01 mL, Route: SUB-Q, Drug form: SOLN, Bedtime, Dosing Weight 86.364, k g, PRN Blood Glucose Results, Start date: 05/25/15 6:00:00, Duration: 30 day, St op date: 06/24/15 5:59:00 Notes: Roll in palms of hands gently; Do not shake vigorously. (Same as: NovoLO G)"single patient use only" Stable for 28 days at room temperature.Expires in _ ____ days from Date Start Date: 05/25/15 Stop Date: 05/26/15 Status: Discontinued insulin aspart 4 unit, 0.04 mL, Route: SUB-Q, Drug form: SOLN, Bedtime, Dosing Weight 86.364, k g, PRN Blood Glucose Results, Start date: 05/25/15 6:00:00, Duration: 30 day, St op date: 06/24/15 5:59:00 Notes: Roll in palms of hands gently; Do not shake vigorously. (Same as: NovoLO G)"single patient use only" Stable for 28 days at room temperature.Expires in _ ____ days from Date Start Date: 05/25/15 Stop Date: 05/26/15 Status: Discontinued insulin aspart 2 unit, 0.02 mL, Route: SUB-Q, Drug form: SOLN, Bedtime, Dosing Weight 86.364, k g, PRN Blood Glucose Results, Start date: 05/25/15 6:00:00, Duration: 30 day, St op date: 06/24/15 5:59:00 Notes: Roll in palms of hands gently; Do not shake vigorously. (Same as: NovoLO G)"single patient use only" Stable for 28 days at room temperature.Expires in _ ____ days from Date Start Date: 05/25/15 Stop Date: 05/26/15 Status: Discontinued insulin aspart 10 unit, 0.1 mL, Route: SUB-Q, Drug form: SOLN, TID-Before Meals, Dosing Weight 86.364, kg, PRN Blood Glucose Results, Start date: 05/25/15 6:00:00, Duration: 3 0 day, Stop date: 06/24/15 5:59:00 Notes: Roll in palms of hands gently; Do not shake vigorously. (Same as: NovoLO G)"single patient use only" Stable for 28 days at room temperature.Expires in _ ____ days from Date Start Date: 05/25/15 Stop Date: 05/26/15 Status: Discontinued insulin aspart 8 unit, 0.08 mL, Route: SUB-Q, Drug form: SOLN, TID-Before Meals, Dosing Weight 86.364, kg, PRN Blood Glucose Results, Start date: 05/25/15 6:00:00, Duration: 3 0 day, Stop date: 06/24/15 5:59:00 Notes: Roll in palms of hands gently; Do not shake vigorously. (Same as: NovoLO G)"single patient use only" Stable for 28 days at room temperature.Expires in _ ____ days from Date Start Date: 05/25/15 Stop Date: 05/26/15 Status: Discontinued insulin aspart 6 unit, 0.06 mL, Route: SUB-Q, Drug form: SOLN, TID-Before Meals, Dosing Weight 86.364, kg, PRN Blood Glucose Results, Start date: 05/25/15 6:00:00, Duration: 3 0 day, Stop date: 06/24/15 5:59:00 Notes: Roll in palms of hands gently; Do not shake vigorously. (Same as: NovoLO G)"single patient use only" Stable for 28 days at room temperature.Expires in _ ____ days from Date Start Date: 05/25/15 Stop Date: 05/26/15 Status: Discontinued insulin aspart 4 unit, 0.04 mL, Route: SUB-Q, Drug form: SOLN, TID-Before Meals, Dosing Weight 86.364, kg, PRN Blood Glucose Results, Start date: 05/25/15 6:00:00, Duration: 3 0 day, Stop date: 06/24/15 5:59:00 Notes: Roll in palms of hands gently; Do not shake vigorously. (Same as: NovoLO G)"single patient use only" Stable for 28 days at room temperature.Expires in _ ____ days from Date Start Date: 05/25/15 Stop Date: 05/26/15 Status: Discontinued insulin aspart 2 unit, 0.02 mL, Route: SUB-Q, Drug form: SOLN, TID-Before Meals, Dosing Weight 86.364, kg, PRN Blood Glucose Results, Start date: 05/25/15 6:00:00, Duration: 3 0 day, Stop date: 06/24/15 5:59:00 Notes: Roll in palms of hands gently; Do not shake vigorously. (Same as: NovoLO G)"single patient use only" Stable for 28 days at room temperature.Expires in _ ____ days from Date Start Date: 05/25/15 Stop Date: 05/26/15 Status: Discontinued metFORMIN 1000 mg oral tablet 1,000 mg=1 tab, PO, Daily, 0 Refill(s) Start Date: 05/25/15 Status: Ordered multivitamin 1 tab, Route: PO, Drug Form: TAB, Dosing Weight 86.364, kg, Daily, Start date: 0 05/25/15 9:00:00, Duration: 30 day, Stop date: 06/23/15 9:00:00 Start Date: 05/25/15 Stop Date: 05/25/15 Status: Deleted multivitamin with minerals 1 tab, Route: PO, Drug Form: TAB, Daily, Start date: 05/25/15 9:00:00, Duration: 30 day, Stop date: 06/23/15 9:00:00 Notes: (Same as:Janis Rios) Give with food. Start Date: 05/25/15 Stop Date: 05/26/15 Status: Discontinued nicotine 14 mg, 1 patch, Route: TOP, Drug form: ERFILM, Daily, Dosing Weight 86.364, kg, Start date: 05/25/15 9:00:00, Duration: 30 day, Stop date: 06/23/15 9:00:00 Notes: (Same as: Habitrol)"Remove old patch before application of new patch" Start Date: 05/25/15 Stop Date: 05/26/15 Status: Discontinued Tar Heel 7.5/325 oral tablet 1 tab, Route: PO, Drug Form: TAB, Dosing Weight 86.364, kg, Q4H, PRN Pain Score 4-6, Start date: 05/25/15 14:15:00, Duration: 30 day, Stop date: 06/24/15 14:14: 00 Notes: Same as Tar [place]el 325-7.5mg Do not exceed 4gm/day of acetaminophen. Start Date: 05/25/15 Stop Date: 05/26/15 Status: Discontinued [place]el 7.5/325 oral tablet 1 tab, Route: PO, Drug Form: TAB, Dosing Weight 86.364, kg, Q6H, PRN Pain Score 4-6, Start date: 05/25/15 5:59:00, Duration: 30 day, Stop date: 06/24/15 5:58:00 Notes: Same as [place] 325-7.5mg Do not exceed 4gm/day of acetaminophen. Start Date: 05/25/15 Stop Date: 05/25/15 Status: Discontinued normal saline 0.9% IV 1,000 mL 1,000 mL, Rate: 150 ml/hr, Infuse over: 6.7 hr, Route: IV, Dosing Weight 86.364 kg, Total Volume: 1,000, Start date: 05/25/15 5:29:00, Duration: 30 day, Stop da te: 06/24/15 5:28:00 Start Date: 05/25/15 Stop Date: 05/25/15 Status: Discontinued NS (Bolus) IV 1,000 mL, 1,000 ml/hr, Infuse Over: 1 hr, Route: IV, 1,000, Drug form: INJ, ONCE , Priority: STAT, Dosing Weight 86.364 kg, Start date: 05/25/15 4:46:00, Duratio n: 1 doses or times, Stop date: 05/25/15 4:46:00 Start Date: 05/25/15 Stop Date: 05/25/15 Status: Completed NS (Bolus) IV 1,000 mL, 1,000 ml/hr, Infuse Over: 1 hr, Route: IV, 1,000, Drug form: INJ, ONCE , Priority: STAT, Dosing Weight 86.364 kg, Start date: 05/25/15 6:01:00, Duratio n: 1 doses or times, Stop date: 05/25/15 6:01:00 Start Date: 05/25/15 Stop Date: 05/25/15 Status: Completed NS 1,000 mL 1,000 mL, Rate: 125 ml/hr, Infuse over: 8 hr, Route: IV, Dosing Weight 86.364 kg , Total Volume: 1,000, Start date: 05/25/15 17:24:00, Duration: 30 day, Stop tom e: 06/24/15 17:23:00 Start Date: 05/25/15 Stop Date: 05/26/15 Status: Discontinued omeprazole 20 mg oral delayed release capsule 20 mg=1 cap, PO, Daily, 0 Refill(s) Start Date: 05/25/15 Status: Ordered pneumococcal 23-valent vaccine 0.5 mL, Route: IM, Drug Form: INJ, Daily, Start date: 05/25/15 9:00:00, Duration : 1 doses or times, Stop date: 05/25/15 9:00:00 Notes: (Same as: Pneumovax 23) Refrigerate Start Date: 05/25/15 Stop Date: 05/25/15 Status: Completed Protonix 40 mg, 1 tab, Route: PO, Drug form: ECTAB, Before Dinner, Dosing Weight 86.364, kg, Start date: 05/25/15 16:30:00, Duration: 30 day, Stop date: 06/23/15 16:30:0 0 Notes: Tablet should not be chewed or crushed.(Same as: Protonix) Start Date: 05/25/15 Stop Date: 05/26/15 Status: Discontinued SUMAtriptan 50 mg, 2 tab, Route: PO, Drug form: TAB, TID, Dosing Weight 86.364, kg, PRN Head ache 1-5, Start date: 05/25/15 21:38:00, Duration: 30 day, Stop date: 06/24/15 2 1:37:00 Notes: (Same As: Imitrex) Start Date: 05/25/15 Stop Date: 05/26/15 Status: Discontinued SUMAtriptan 50 mg oral tablet 50 mg=1 tab, PO, TID, 0 Refill(s) Start Date: 05/25/15 Status: Ordered tetracycline 250 mg oral capsule 250 mg=1 cap, PO, Q6H, # 56 cap, 0 Refill(s) Start Date: 05/25/15 Stop Date: 05/26/15 Status: Discontinued thiamine 100 mg, 1 tab, Route: PO, Drug form: TAB, Daily, Dosing Weight 86.364, kg, Start date: 05/25/15 9:00:00, Duration: 30 day, Stop date: 06/23/15 9:00:00 Notes: (Same As: Vitamin B1) Start Date: 05/25/15 Stop Date: 05/26/15 Status: Discontinued topiramate 25 mg, 1 tab, Route: PO, Drug form: TAB, Q12H, Dosing Weight 86.364, kg, Start d ate: 05/25/15 22:01:00, Duration: 30 day, Stop date: 06/24/15 21:00:00 Notes: (Same As: Topamax)"Do Not Crush" Start Date: 05/25/15 Stop Date: 05/26/15 Status: Discontinued topiramate 25 mg oral capsule 25 mg=1 cap, PO, BID, 0 Refill(s) Start Date: 05/25/15 Status: Ordered Tylenol 650 mg, 2 tab, Route: PO, Drug form: TAB, Q6H, Dosing Weight 86.364, kg, PRN Dat n Score 1-3, Start date: 05/25/15 5:59:00, Duration: 30 day, Stop date: 06/24/15 5:58:00 Notes: Do not exceed 4 gm/day. (Same as: Tylenol) Start Date: 05/25/15 Stop Date: 05/26/15 Status: Discontinued Results ELECTROLYTES 1 2 3 Most recent to oldest [Reference Range]: 142 mEq/L (05/26/15 4:02 AM) 139 mEq/L (05/25/15 3:05 PM) 138 mEq/L (05/25/15 8:41 AM) Sodium Lvl [135-145 mEq/L] 4.5 mEq/L (05/26/15 4:02 AM) 4.1 mEq/L (05/25/15 3:05 PM) 4.2 mEq/L (05/25/15 8:41 AM) Potassium Lvl [3.5-5.1 mEq/L] 107 mEq/L (05/26/15 4:02 AM) 103 mEq/L (05/25/15 3:05 PM) 103 mEq/L (05/25/15 8:41 AM) Chloride Lvl [95-109 mEq/L] 27 mEq/L (05/26/15 4:02 AM) 26 mEq/L (05/25/15 3:05 PM) 26 mEq/L (05/25/15 8:41 AM) CO2 [24-32 mEq/L] 12.5 mEq/L (05/26/15 4:02 AM) 14.1 mEq/L (05/25/15 3:05 PM) 13.2 mEq/L (05/25/15 8:41 AM) AGAP [10.0-20.0 mEq/L] CHEM PANEL 1 2 3 Most recent to oldest [Reference Range]: 1.2 mg/dL (05/26/15 4:02 AM) 2.0 mg/dL *HI* (05/25/15 3:05 PM) 2.5 mg/dL *HI* (05/25/15 8:41 AM) Creatinine Lvl [0.5-1.4 mg/dL] 51 mL/min/1.73m2 1 *NA* (05/26/15 4:02 AM) 27 mL/min/1.73m2 2 *NA* (05/25/15 3:05 PM) 21 mL/min/1.73m2 3 *NA* (05/25/15 8:41 AM) eGFR 31 mg/dL *HI* (05/26/15 4:02 AM) 42 mg/dL *HI* (05/25/15 3:05 PM) 40 mg/dL *HI* (05/25/15 8:41 AM) BUN [7-22 mg/dL] 14 (05/25/15 3:45 AM) B/C Ratio [6-25] 195 mg/dL *HI* (05/26/15 4:02 AM) 318 mg/dL *HI* (05/25/15 3:05 PM) 248 mg/dL *HI* (05/25/15 8:41 AM) Glucose Lvl [70-99 mg/dL] 7.8 g/dL (05/25/15 3:45 AM) Total Protein [6.4-8.4 g/dL] 3.3 g/dL *LOW* (05/25/15 3:45 AM) Albumin Lvl [3.5-5.0 g/dL] 4.5 g/dL *HI* (05/25/15 3:45 AM) Globulin [2.0-4.0 g/dL] 0.7 (05/25/15 3:45 AM) A/G Ratio [0.7-1.6] 8.6 mg/dL (05/26/15 4:02 AM) 8.3 mg/dL *LOW* (05/25/15 3:05 PM) 8.7 mg/dL (05/25/15 8:41 AM) Calcium Lvl [8.5-10.5 mg/dL] 4.2 mg/dL (05/26/15 4:02 AM) 7.1 mg/dL *HI* (05/25/15 8:41 AM) Phosphorus [2.5-4.5 mg/dL] 2.1 mg/dL (05/26/15 4:02 AM) 2.0 mg/dL (05/25/15 8:41 AM) Magnesium Lvl [1.8-2.4 mg/dL] 34 unit/L (05/25/15 3:45 AM) ALT [0-65 unit/L] 14 unit/L (05/25/15 3:45 AM) AST [0-37 unit/L] 129 unit/L (05/25/15 3:45 AM) Alk Phos [39-136 unit/L] 0.5 mg/dL (05/25/15 3:45 AM) Bili Total [0.2-1.3 mg/dL] 1Result Comment: The eGFR is calculated using [...] be mul tiplied by the estimated BMI. 2Result Comment: The eGFR is calculated using the [...] be mul tiplied by the estimated BMI. 3Result Comment: The eGFR is calculated using the [...] be mul tiplied by the estimated BMI. CARDIAC ENZYMES 1 2 3 Most recent to oldest [Reference Range]: 40 unit/L (05/25/15 3:45 AM) Total CK [12-191 unit/L] <0.5 ng/mL (05/25/15 3:45 AM) CK MB [0.5-3.6 ng/mL] <1.2 (05/25/15 3:45 AM) CK MB Index [0.0-2.5] <0.02 ng/mL (05/25/15 3:45 AM) Troponin-I [0.00-0.40 ng/mL] LIPIDS 1 2 3 Most recent to oldest [Reference Range]: 5.50 (05/26/15 4:02 AM) CHD Risk [3.90-5.80] 198 mg/dL (05/26/15 4:02 AM) Chol [<=199 mg/dL] 234 mg/dL *HI* (05/26/15 4:02 AM) Trig [<=149 mg/dL] 36 mg/dL *LOW* (05/26/15 4:02 AM) HDL [>=61 mg/dL] 115 mg/dL *HI* (05/26/15 4:02 AM) LDL (Calculated) [<=99 mg/dL] 47 *NA* (05/26/15 4:02 AM) VLDL SPECIAL CHEMISTRY 1 2 3 Most recent to oldest [Reference Range]: 8.6 % *HI* (05/25/15 8:41 AM) Hgb A1C [<=5.6 %] DRUG SCREEN 1 2 3 Most recent to oldest [Reference Range]: Negative *NA* (05/25/15 5:20 AM) U Amph Scr [Negative] Negative *NA* (05/25/15 5:20 AM) U Courtney Scr [Negative] Negative *NA* (05/25/15 5:20 AM) U Benzodia Scr [Negative] Positive *ABN* (05/25/15 5:20 AM) U Cocaine Scr [Negative] Negative *NA* (05/25/15 5:20 AM) U Opiate Scr [Negative] Negative *NA* (05/25/15 5:20 AM) U Phencyc Scr [Negative] Positive *ABN* (05/25/15 5:20 AM) U Cannab Scr [Negative] See Note (05/25/15 5:20 AM) UDS Note TOXICOLOGY 1 2 3 Most recent to oldest [Reference Range]: <.003 % *NA* (05/25/15 8:41 AM) Etoh (%) <3 mg/dL *NA* (05/25/15 8:41 AM) Ethanol Lvl URINE CHEM 1 2 3 Most recent to oldest [Reference Range]: 40.9 mg/dL *NA* (05/25/15 9:50 PM) U Creatinine 107 mEq/L *NA* (05/25/15 9:50 PM) U Sodium 16.7 mEq/L *NA* (05/25/15 9:50 PM) U Potassium 97 mEq/L *NA* (05/25/15 9:50 PM) U Chloride URINE AND STOOL 1 2 3 Most recent to oldest [Reference Range]: Marked *ABN* (05/25/15 5:20 AM) UA Turbidity [Clear] Brown *ABN* (05/25/15 5:20 AM) UA Color [Yellow] 5.0 (05/25/15 5:20 AM) UA pH [5.0-8.0] 1.018 (05/25/15 5:20 AM) UA Spec Grav [<=1.030] 50 mg/dL *ABN* (05/25/15 5:20 AM) UA Glucose [Negative mg/dL] Trace *ABN* (05/25/15 5:20 AM) UA Blood [Negative] Negative mg/dL *NA* (05/25/15 5:20 AM) UA Ketones [Negative mg/dL] 200 mg/dL *ABN* (05/25/15 5:20 AM) UA Protein [Negative mg/dL] 2.0 mg/dL *HI* (05/25/15 5:20 AM) UA Urobilinogen [0.1-1.0 mg/dL] Negative *NA* (05/25/15 5:20 AM) UA Bili [Negative] Moderate *ABN* (05/25/15 5:20 AM) UA Leuk Est [Negative] Negative (05/25/15 5:20 AM) UA Nitrite [Negative] 37 /HPF *HI* (05/25/15 5:20 AM) UA WBC [0-5 /HPF] 21 /HPF *HI* (05/25/15 5:20 AM) UA RBC [0-2 /HPF] Occasional /HPF *NA* (05/25/15 5:20 AM) UA Bacteria [None Seen /HPF] Many /LPF *ABN* (05/25/15 5:20 AM) UA Sq Epi [Few /LPF] 99 /LPF *HI* (05/25/15 5:20 AM) UA Hyal Cast [0-2 /LPF] Many /LPF *ABN* (05/25/15 5:20 AM) UA Mucus [None Seen /LPF] HEMATOLOGY 1 2 3 Most recent to oldest [Reference Range]: 10.8 K/CMM *HI* (05/25/15 3:05 PM) 12.8 K/CMM *HI* (05/25/15 3:45 AM) WBC [3.7-10.4 K/CMM] 4.27 M/CMM (05/25/15 3:05 PM) 4.72 M/CMM (05/25/15 3:45 AM) RBC [4.20-5.40 M/CMM] 12.4 g/dL (05/25/15 3:05 PM) 13.6 g/dL (05/25/15 3:45 AM) Hgb [12.0-16.0 g/dL] 38.8 % (05/25/15 3:05 PM) 42.3 % (05/25/15 3:45 AM) Hct [36.0-48.0 %] 90.9 fL (05/25/15 3:05 PM) 89.6 fL (05/25/15 3:45 AM) MCV [80.0-98.0 fL] 29.0 pg (05/25/15 3:05 PM) 28.8 pg (05/25/15 3:45 AM) MCH [27.0-31.0 pg] 32.0 g/dL (05/25/15 3:05 PM) 32.1 g/dL (05/25/15 3:45 AM) MCHC [32.0-36.0 g/dL] 14.9 % *HI* (05/25/15 3:05 PM) 14.9 % *HI* (05/25/15 3:45 AM) RDW [11.5-14.5 %] 370 K/CMM (05/25/15 3:05 PM) 430 K/CMM (05/25/15 3:45 AM) Platelet [133-450 K/CMM] 7.7 fL (05/25/15 3:05 PM) 7.2 fL *LOW* (05/25/15 3:45 AM) MPV [7.4-10.4 fL] 53.9 % (05/25/15 3:05 PM) 59.0 % (05/25/15 3:45 AM) Segs [45.0-75.0 %] 37.5 % (05/25/15 3:05 PM) 33.3 % (05/25/15 3:45 AM) Lymphocytes [20.0-40.0 %] 4.8 % (05/25/15 3:05 PM) 5.3 % (05/25/15 3:45 AM) Monocytes [2.0-12.0 %] 2.6 % (05/25/15 3:05 PM) 1.8 % (05/25/15 3:45 AM) Eosinophils [0.0-4.0 %] 1.2 % *HI* (05/25/15 3:05 PM) 0.6 % (05/25/15 3:45 AM) Basophils [0.0-1.0 %] 5.8 K/CMM (05/25/15 3:05 PM) 7.6 K/CMM (05/25/15 3:45 AM) Segs-Bands # [1.5-8.1 K/CMM] 4.0 K/CMM (05/25/15 3:05 PM) 4.3 K/CMM (05/25/15 3:45 AM) Lymphocytes # [1.0-5.5 K/CMM] 0.5 K/CMM (05/25/15 3:05 PM) 0.7 K/CMM (05/25/15 3:45 AM) Monocytes # [0.0-0.8 K/CMM] 0.3 K/CMM (05/25/15 3:05 PM) 0.2 K/CMM (05/25/15 3:45 AM) Eosinophils # [0.0-0.5 K/CMM] 0.1 K/CMM (05/25/15 3:05 PM) 0.1 K/CMM (05/25/15 3:45 AM) Basophils # [0.0-0.2 K/CMM] Immunizations Vaccine Date Refusal Reason pneumococcal 23-valent vaccine 05/25/15 Procedures No data available for this section Social History Social History Type Response Substance Abuse Use: None. Alcohol Past Smoking Status Current every day smoker; Exposure to Tobacco Smoke None; Cigarette Smoking Last 365 Days Yes; Reg Smoking Cessation Counseling No Assessment and Plan Extracted from: Title: Progress Note * Author: Giselle Gallo LEAD DATABASE ADMINISTRATOR Date: 05/25/15 Impression and Plan Impression and Plan A 54 y/o admitted with 1. Acute Kidney Injury 2nd to severe dehydation - continue IVF, avoid nephrotoxic agents, hold metformin, renal u/s pt reports renal cyst, urine study, follow bmp. 2. Polysubstance Abuse - watch for withdrawal, continue supportive care 3. Dialbetus Mellitus - SSI, hold metformin 4. Chronic Back Pain - continue meds. DVT and GI prophylaxis Extracted from: Title: General Admission H&P * Author: Danya Majano NP Date: 05/25/15 Patient: STEPH NOLASCO Age: 54 years Sex: Female : 1960 Associated Diagnoses: None Author: Danya Majano NP Basic Information Source of history: Self, Medical record. Present at bedside: Medical personnel. Referral source: Emergency department. History limitation: None. Pt seen at 0559 Chief Complaint 05/25/2015 01:57 pt reports being at a concert got really weak and "shaky", pt states she was unable to take her medications because the ppl she went with left without her. pt is diabetic has has not had anything to eat. bs 168 in triage History of Present Illness Ms. Nolasco is a 54 YOF who was at [employer] concert with friends and pt reports she became dizzy, hot, shaky, and feeling like she was about to pass out. Per patient she was at the medical tent where they monitored her but performed no interventions. Pt states her friends left her and had her purse so she had no way to travel home. Patient reports she is new diabetic but can't recall medication, blood sugar on arriva was 168. Pt reports chronic back pain and anxiety but can not recall any of her medications. Bilateral lower legs and arms with scabbed regions noted. During assessment patient with slurred speech but oriented. Review of Systems All 14 systems reviewed with patient and are negative except for pertinents noted in HPI Health Status Allergies-NKDA Current medications-pt unable to recall Histories Past medical history of tobacco abuse, diabetes, anxiety, and stomach mass being evaluated. Surgical history-NONE Social history-pt is on disability. Lives alone. Current smoker with 31 year history. Denies alcohol and illicit drugs but urine drug screen positive for cocaine and TSH. Family history pt reports noncontributory Physical Examination VS/Measurements Vital Signs (last 24 hrs) Last Charted Heart Rate [id number] bpm (MAY 25:49) Resp Rate 18 BRMIN (MAY 25:) SBP96 mmHg (MAY 25:49) DBP62 mmHg (MAY 25:49) Ynvzay15.364 kg (MAY 25:) Eixmih188.48 cm (MAY 25:) BMI34.82 (MAY 25:) General: Alert and oriented, No acute distress. Eye: Pupils are equal, round and reactive to light, Vision unchanged. HENT: Normocephalic, Normal hearing, Oral mucosa is moist, No pharyngeal erythema. Neck: Supple, Non-tender. Respiratory: Lungs are clear to auscultation, Breath sounds are equal, Symmetrical chest wall expansion, No chest wall tenderness, inspiratory wheezing. Cardiovascular: Normal rate, Regular rhythm, Good pulses equal in all extremities, No edema. Gastrointestinal: Soft, Non-tender, Normal bowel sounds. Genitourinary: No costovertebral angle tenderness. Musculoskeletal Normal range of motion. Normal gait. Integumentary: Warm, Dry, No pallor, scattered scabs to bilateral legs and arms. Neurologic: Alert, Oriented, No focal deficits. Cognition and Speech: Oriented, Functional cognition intact. Psychiatric: Cooperative, Appropriate mood & affect, Normal judgment, Non-suicidal. Review / Management Results review: Labs (Last four charted values) WBC H 12.8(MAY 25) Hgb 13.6(MAY 25) Hct 42.3(MAY 25) Plt 430(MAY 25) Na 140(MAY 25) K 4.0(MAY 25) CO2 29(MAY 25) Cl 102(MAY 25) Cr H 2.7(MAY 25) BUN H 39(MAY 25) Glucose Random H 155(MAY 25) Ca 9.4(MAY 25) Troponin <0.02(MAY 25) CK MB <0.5(MAY 25) Total CK 40(MAY 25). Impression and Plan 1. Acute kidney injury could be secondary to dehydration or cocaine use. Will give ivf, urine electrolytes and if does not improve will consult renal 2. Diabetes will obtain hemoglobin aic, ssi and accu checks. 3. Tobacco abuse discussed cessation and ordered nicotine patch. 4. Polysubstance abuse pt refused using now positive for cocaine and tsh. PPI protonix VTE heparin. Discussed plan of care with patient and admitting [facility] hospitalist Dr. Harris. Addendum Pt seen and examined in ER, LAbs noted, D/W [employer] ADMINISTRATOR by agree with above Judy Oliveira MD on 05/25/2015 23:29
--- OUTSIDE RECORDS SUMMARY | 2018-09-16 08:15 | XMS REPORT | Summary of Care ---
Author Author [facility] Organization [facility] Address Unknown Phone Unavailable Encounter RYLEE Mobley(JAY) [id number] Date(s): 03/21/16 - 03/21/16 [facility] [address] [place] [address]- Discharge Diagnosis: Rash and other nonspecific skin eruption Discharge Diagnosis: Allergy, unspecified, initial encounter Discharge Disposition: Home Attending Physician: Evelyn Mobley MD Vital Signs Most recent to 1 2 oldest [Reference Range]: Height 157.48 cm (03/21/16 1:03 PM) Temperature Oral 97.8 DegF 98.2 DegF [96.4-99.1 DegF] (03/21/16 2:52 PM) (03/21/16 1:03 PM) Blood Pressure 128/80 mmHg 163/92 mmHg [90-140/60-90 mmHg] (03/21/16 2:52 PM) *HI* (03/21/16 1:03 PM) Respiratory Rate 17 BRMIN 18 BRMIN [14-20 BRMIN] (03/21/16 2:52 PM) (03/21/16 1:03 PM) Peripheral Pulse 99 bpm 102 bpm Rate [60-100 bpm] (03/21/16 2:52 PM) *HI* (03/21/16 1:03 PM) Weight 95.455 kg (03/21/16 1:03 PM) Body Mass Index 38.49 m2 (03/21/16 1:03 PM) Problem List Condition Effective Dates Status Health Status Informant Back pain(Confirmed) Resolved Depressive Resolved disorder(Confirmed) DM (diabetes Resolved mellitus)(Confirmed) H/O: Resolved migraine(Confirmed) HTN - Resolved Hypertension(Confirm ed) Mass in the Resolved abdomen(Confirmed) Allergies, Adverse Reactions, Alerts Substance Reaction Severity Status NKDA Active NKFA Active Medications Benadryl 50 mg, 1 cap, Route: PO, Drug form: CAP, ONCE, Dosing Weight 95.455, kg, Priorit y: STAT, Start date: 03/21/16 13:18:00 CDT, Stop date: 03/21/16 13:18:00 CDT Notes: (Same as: Benadryl) Start Date: 03/21/16 Stop Date: 03/21/16 Status: Completed clindamycin 900 mg, Route: IVPB, ONCE, Dosing Weight 95.455, kg, Priority: STAT, Start date: 03/21/16 13:18:00 CDT, Stop date: 03/21/16 13:18:00 CDT Start Date: 03/21/16 Stop Date: 03/21/16 Status: Completed clindamycin 150 mg oral capsule 300 mg=2 cap, PO, Q6H, X 7 day, # 56 cap, 0 Refill(s) Start Date: 03/21/16 Stop Date: 03/28/16 Status: Ordered morphine Sulfate 4 mg, Route: IVP, Drug form: INJ, ONCE, Dosing Weight 95.455, kg, Priority: STAT , Start date: 03/21/16 13:33:00 CDT, Stop date: 03/21/16 13:33:00 CDT Start Date: 03/21/16 Stop Date: 03/21/16 Status: Completed NS (Bolus) IV 1,000 mL, 1,000 ml/hr, Infuse Over: 1 hr, Route: IV, 1,000, Drug form: INJ, ONCE , Priority: STAT, Dosing Weight 95.455 kg, Start date: 03/21/16 13:17:00 CDT, Du ration: 1 doses or times, Stop date: 03/21/16 13:17:00 CDT Start Date: 03/21/16 Stop Date: 03/21/16 Status: Completed Pepcid 2 tab, Route: PO, ONCE, Dosing Weight 95.455, kg, Start date: 03/21/16 13:18:00 CDT, Stop date: 03/21/16 13:18:00 CDT Start Date: 03/21/16 Stop Date: 03/21/16 Status: Completed Pepcid 20 mg oral tablet 20 mg=1 tab, PO, BID, # 10 tab, 0 Refill(s) Start Date: 03/21/16 Status: Ordered predniSONE 20 mg oral tablet 60 mg=3 tab, PO, Daily, Take 3 tablets for 60 mg dose, X 3 day, # 9 tab, 0 Refil l(s) Start Date: 03/21/16 Stop Date: 03/24/16 Status: Ordered Solu-MEDROL 125 mg, Route: IVP, ONCE, Dosing Weight 95.455, kg, Priority: STAT, Start date: 03/21/16 13:18:00 CDT, Stop date: 03/21/16 13:18:00 CDT Start Date: 03/21/16 Stop Date: 03/21/16 Status: Completed Results ELECTROLYTES Most recent to 1 oldest [Reference Range]: Sodium Lvl [135-145 137 mEq/L mEq/L] (03/21/16 1:27 PM) Potassium Lvl 4.1 mEq/L [3.5-5.1 mEq/L] (03/21/16 1:27 PM) Chloride Lvl [95-109 100 mEq/L mEq/L] (03/21/16 1:27 PM) CO2 [24-32 mEq/L] 29 mEq/L (03/21/16 1:27 PM) AGAP [10.0-20.0 12.1 mEq/L mEq/L] (03/21/16 1:27 PM) CHEM PANEL Most recent to 1 oldest [Reference Range]: Creatinine Lvl 1.11 mg/dL [0.50-1.40 mg/dL] (03/21/16 1:27 PM) eGFR 55 mL/min/1.73m2 1 *NA* (03/21/16 1:27 PM) BUN [7-22 mg/dL] 14 mg/dL (03/21/16 1:27 PM) B/C Ratio [6-25] 13 (03/21/16 1:27 PM) Glucose Lvl [70-99 222 mg/dL mg/dL] *HI* (03/21/16 1:27 PM) Total Protein 7.2 g/dL [6.4-8.4 g/dL] (03/21/16 1:27 PM) Albumin Lvl [3.5-5.0 3.2 g/dL g/dL] *LOW* (03/21/16 1:27 PM) Globulin [2.0-4.0 4.0 g/dL g/dL] (03/21/16 1:27 PM) A/G Ratio [0.7-1.6] 0.8 (03/21/16 1:27 PM) Calcium Lvl 8.6 mg/dL [8.5-10.5 mg/dL] (03/21/16 1:27 PM) ALT [0-65 unit/L] 33 unit/L (03/21/16 1:27 PM) AST [0-37 unit/L] 24 unit/L (03/21/16 1:27 PM) Alk Phos [39-136 119 unit/L unit/L] (03/21/16 1:27 PM) Bili Total [0.2-1.3 0.5 mg/dL mg/dL] (03/21/16 1:27 PM) 1Result Comment: The eGFR is calculated using [...] be mul tiplied by the estimated BMI. URINE AND STOOL Most recent to 1 oldest [Reference Range]: UA Turbidity [Clear] Clear (03/21/16 1:27 PM) UA Color [Yellow] Yellow *NA* (03/21/16 1:27 PM) UA pH [5.0-8.0] 6.0 (03/21/16 1:27 PM) UA Spec Grav >=1.030 [<=1.030] *ABN* (03/21/16 1:27 PM) UA Glucose [Negative >=1000 mg/dL mg/dL] *ABN* (03/21/16 1:27 PM) UA Blood [Negative] Trace *ABN* (03/21/16 1:27 PM) UA Ketones Negative [Negative] *NA* (03/21/16 1:27 PM) UA Protein [Negative 30 mg/dL mg/dL] *ABN* (03/21/16 1:27 PM) UA Urobilinogen 1.0 EU/dL [0.1-1.0 EU/dL] (03/21/16 1:27 PM) UA Bili [Negative] Small *ABN* (03/21/16 1:27 PM) UA Leuk Est Negative [Negative] (03/21/16 1:27 PM) UA Nitrite Negative [Negative] (03/21/16 1:27 PM) UA WBC [0-5 /HPF] 3-5 /HPF (03/21/16 1:27 PM) UA RBC [0-2 /HPF] 3-5 /HPF *ABN* (03/21/16 1:27 PM) UA Bacteria [None Few /HPF Seen /HPF] (03/21/16 1:27 PM) UA Sq Epi [Few /LPF] Moderate /LPF *ABN* (03/21/16 1:27 PM) HEMATOLOGY Most recent to 1 oldest [Reference Range]: WBC [3.7-10.4 K/CMM] 7.8 K/CMM (03/21/16 1:27 PM) RBC [4.20-5.40 5.16 M/CMM M/CMM] (03/21/16 1:27 PM) Hgb [12.0-16.0 g/dL] 14.5 g/dL (03/21/16 1:27 PM) Hct [36.0-48.0 %] 45.6 % (03/21/16 1:27 PM) MCV [80.0-98.0 fL] 88.2 fL (03/21/16 1:27 PM) MCH [27.0-31.0 pg] 28.0 pg (03/21/16 1:27 PM) MCHC [32.0-36.0 31.7 g/dL g/dL] *LOW* (03/21/16 1:27 PM) RDW [11.5-14.5 %] 15.0 % *HI* (03/21/16 1:27 PM) Platelet [133-450 280 K/CMM K/CMM] (03/21/16 1:27 PM) MPV [7.4-10.4 fL] 7.6 fL (03/21/16 1:27 PM) Segs [45.0-75.0 %] 50.7 % (03/21/16 1:27 PM) Lymphocytes 32.8 % [20.0-40.0 %] (03/21/16 1:27 PM) Monocytes [2.0-12.0 8.5 % %] (03/21/16 1:27 PM) Eosinophils [0.0-4.0 7.4 % %] *HI* (03/21/16 1:27 PM) Basophils [0.0-1.0 0.6 % %] (03/21/16 1:27 PM) Segs-Bands # 3.9 K/CMM [1.5-8.1 K/CMM] (03/21/16 1:27 PM) Lymphocytes # 2.6 K/CMM [1.0-5.5 K/CMM] (03/21/16 1:27 PM) Monocytes # [0.0-0.8 0.7 K/CMM K/CMM] (03/21/16 1:27 PM) Eosinophils # 0.6 K/CMM [0.0-0.5 K/CMM] *HI* (03/21/16 1:27 PM) Immunizations Vaccine Date Refusal Reason pneumococcal 23-valent [...]
--- OUTSIDE RECORDS SUMMARY | 2018-09-16 08:15 | XMS REPORT | Summary of Care ---
Author Author [facility] Organization [facility] Address Unknown Phone Unavailable Encounter RYLEE Mobley(JAY) [id number] Date(s): 11/23/15 - 11/24/15 [facility] [address] [place] [address]- Discharge Disposition: Home Attending Physician: Gato Bullard MD Admitting Physician: Gato Bullard MD Vital Signs 1 2 3 Most recent to oldest [Reference Range]: 157.48 cm (11/23/15 4:28 PM) Height 98.0 DegF (11/24/15 6:08 PM) 98.0 DegF (11/24/15 5:47 PM) 98.3 DegF (11/24/15 5:15 PM) Temperature Oral [96.4-99.1 DegF] 136/86 mmHg (11/24/15 6:08 PM) 132/79 mmHg (11/24/15 5:47 PM) Blood Pressure [90-140/60-90 mmHg] 150 mmHg *HI* (11/24/15 5:15 PM) Systolic Blood Pressure [90-140 mmHg] 96 mmHg *HI* (11/24/15 5:15 PM) Diastolic Blood Pressure [60-90 mmHg] 16 BRMIN (11/24/15 6:08 PM) 16 BRMIN (11/24/15 5:47 PM) 16 BRMIN (11/24/15 5:15 PM) Respiratory Rate [14-20 BRMIN] 96 bpm (11/24/15 6:08 PM) 92 bpm (11/24/15 5:47 PM) 88 bpm (11/24/15 5:15 PM) Peripheral Pulse Rate [60-100 bpm] 100 kg (11/23/15 4:28 PM) Weight 40.32 m2 (11/23/15 4:28 PM) Body Mass Index Problem List Condition Effective Dates Status Health Status Informant Back pain(Confirmed) Resolved DM (diabetes Resolved mellitus)(Confirmed) H/O: Resolved migraine(Confirmed) HTN - Resolved Hypertension(Confirm ed) Mass in the Resolved abdomen(Confirmed) Allergies, Adverse Reactions, Alerts Substance Reaction Severity Status NKDA Active NKFA Active Medications albuterol-ipratropium 2.5-0.5 mg inhalation solution 3 mL, Route: NEB, Drug Form: SOLN, Dosing Weight 100, kg, ONCE, STAT, Start date : 11/23/15 20:05:00, Stop date: 11/23/15 20:05:00 Notes: (Same as: Duoneb) Start Date: 11/23/15 Stop Date: 11/24/15 Status: Completed aspirin 324 mg, Route: CHEW, Drug form: CHEWTAB, ONCE, Dosing Weight 100, kg, Priority: STAT, Start date: 11/23/15 19:06:00, Stop date: 11/23/15 19:06:00 Start Date: 11/23/15 Stop Date: 11/23/15 Status: Completed atorvastatin 40 mg oral tablet 40 mg=1 tab, PO, Bedtime, # 30 tab, 3 Refill(s) Start Date: 11/24/15 Status: Ordered Dextrose 50% Syringe 25 gm, 50 mL, Route: IVP, Drug Form: INJ, Dosing Weight 100, kg, PRN, PRN Blood Glucose Results, Start date: 11/23/15 21:44:00, Duration: 30 day, Stop date: 21:43:00 Start Date: 11/23/15 Stop Date: 11/24/15 Status: Discontinued Dextrose 50% Syringe 12.5 gm, 25 mL, Route: IVP, Drug Form: INJ, Dosing Weight 100, kg, PRN, PRN Bloo d Glucose Results, Start date: 11/23/15 21:44:00, Duration: 30 day, Stop date: 0 12/23/15 21:43:00 Start Date: 11/23/15 Stop Date: 11/24/15 Status: Discontinued glucagon 1 mg, Route: IM, Drug form: PDR/INJ, PRN, Dosing Weight 100, kg, PRN Blood Gluco se Results, Start date: 11/23/15 21:44:00, Duration: 30 day, Stop date: 12/23/15 21:43:00 Start Date: 11/23/15 Stop Date: 11/24/15 Status: Discontinued insulin aspart 6 unit, 0.06 mL, Route: SUB-Q, Drug form: SOLN, TID-Before Meals, Dosing Weight 100, kg, PRN Blood Glucose Results, Start date: 11/23/15 21:44:00, Duration: 30 day, Stop date: 12/23/15 21:43:00 Notes: Roll in palms of hands gently; Do not shake vigorously. (Same as: Darrell Keane)"single patient use only"WASTE: F/P - Black; E - Municipal Trash Bin Stable f or 28 days at room temperature.Expires in days from Date Start Date: 11/23/15 Stop Date: 11/24/15 Status: Discontinued insulin aspart 8 unit, 0.08 mL, Route: SUB-Q, Drug form: SOLN, TID-Before Meals, Dosing Weight 100, kg, PRN Blood Glucose Results, Start date: 11/23/15 21:44:00, Duration: 30 day, Stop date: 12/23/15 21:43:00 Notes: Roll in palms of hands gently; Do not shake vigorously. (Same as: Darrell Keane)"single patient use only"WASTE: F/P - Black; E - Municipal Trash Bin Stable f or 28 days at room temperature.Expires in days from Date Start Date: 11/23/15 Stop Date: 11/24/15 Status: Discontinued insulin aspart 4 unit, 0.04 mL, Route: SUB-Q, Drug form: SOLN, TID-Before Meals, Dosing Weight 100, kg, PRN Blood Glucose Results, Start date: 11/23/15 21:44:00, Duration: 30 day, Stop date: 12/23/15 21:43:00 Notes: Roll in palms of hands gently; Do not shake vigorously. (Same as: Darrell Keane)"single patient use only"WASTE: F/P - Black; E - Municipal Trash Bin Stable f or 28 days at room temperature.Expires in days from Date Start Date: 11/23/15 Stop Date: 11/24/15 Status: Discontinued insulin aspart 10 unit, 0.1 mL, Route: SUB-Q, Drug form: SOLN, TID-Before Meals, Dosing Weight 100, kg, PRN Blood Glucose Results, Start date: 11/23/15 21:44:00, Duration: 30 day, Stop date: 12/23/15 21:43:00 Notes: Roll in palms of hands gently; Do not shake vigorously. (Same as: Darrell Keane)"single patient use only"WASTE: F/P - Black; E - Municipal Trash Bin Stable f or 28 days at room temperature.Expires in days from Date Start Date: 11/23/15 Stop Date: 11/24/15 Status: Discontinued insulin aspart 2 unit, 0.02 mL, Route: SUB-Q, Drug form: SOLN, TID-Before Meals, Dosing Weight 100, kg, PRN Blood Glucose Results, Start date: 11/23/15 21:44:00, Duration: 30 day, Stop date: 12/23/15 21:43:00 Notes: Roll in palms of hands gently; Do not shake vigorously. (Same as: Darrell Keane)"single patient use only"WASTE: F/P - Black; E - Municipal Trash Bin Stable f or 28 days at room temperature.Expires in days from Date Start Date: 11/23/15 Stop Date: 11/24/15 Status: Discontinued morphine Sulfate 2 mg, 1 mL, Route: IVP, Drug form: INJ, Q15Min, Dosing Weight 100, kg, PRN Chest Pain, Start date: 11/23/15 21:43:00, Duration: 2 doses or times, Stop date: [place] ited # of times Notes: (Same as:MORPhine Sulfate) Start Date: 11/23/15 Stop Date: 11/24/15 Status: Completed morphine Sulfate 1 mg, 0.5 mL, Route: IVP, Drug form: INJ, Q6H, Dosing Weight 100, kg, PRN Pain S core 7-10, Start date: 11/24/15 12:38:00, Duration: 30 day, Stop date: 12/24/15 12:37:00 Notes: (Same as:MORPhine Sulfate) Start Date: 11/24/15 Stop Date: 11/24/15 Status: Discontinued nitroglycerin 0.4 mg, 1 tab, Route: SL, Drug form: TAB, Q5Min, Dosing Weight 100, kg, PRN Ches t Pain, Priority: STAT, Start date: 11/23/15 19:06:00, Duration: 3 doses or time s, Stop date: Limited # of times Notes: (Same as:Nitroquick, Nitrostat)"Do Not Crush" Sublingual tablet Start Date: 11/23/15 Stop Date: 11/23/15 Status: Discontinued nitroglycerin SL Tab 0.4 mg, Route: SL, Drug form: TAB, Q5Min, Dosing Weight 100, kg, PRN Chest Pain, Start date: 11/24/15 17:27:00, Duration: 3 doses or times, Stop date: Limited # of times Start Date: 11/24/15 Stop Date: 11/24/15 Status: Deleted nitroglycerin SL Tab 0.4 mg, 1 tab, Route: SL, Drug form: TAB, Q5Min, Dosing Weight 100, kg, PRN Ches t Pain, Start date: 11/23/15 21:43:00, Duration: 3 doses or times, Stop date: Li mited # of times Notes: (Same as:Nitroquick, Nitrostat)"Do Not Crush" Sublingual tablet Start Date: 11/23/15 Stop Date: 11/24/15 Status: Discontinued [place] 10/325 oral tablet 1 tab, PO, TID, PRN Pain, # 60 tab, 0 Refill(s) Start Date: 11/23/15 Stop Date: 12/13/15 Status: Ordered [place] 5/325 oral tablet 1 tab, Route: PO, Drug Form: TAB, Dosing Weight 100, kg, ONCE, STAT, Start date: 11/23/15 19:07:00, Stop date: 11/23/15 19:07:00 Start Date: 11/23/15 Stop Date: 11/23/15 Status: Completed ondansetron 4 mg, 1 tab, Route: PO, Drug form: TAB, Q8H, Dosing Weight 100, kg, PRN Nausea & Vomiting, Start date: 11/23/15 21:43:00, Duration: 30 day, Stop date: 12/23/15 21:42:00 Notes: (Same as: Zofran) Start Date: 11/23/15 Stop Date: 11/24/15 Status: Discontinued Saline Flush 0.9% 10 mL, Route: IVP, Drug Form: INJ, Dosing Weight 100, kg, PRN, PRN Line Flush, S tart date: 11/23/15 16:39:00, Duration: 30 day, Stop date: 12/23/15 16:38:00 Notes: (Same as: BD Posiflush) Start Date: 11/23/15 Stop Date: 11/23/15 Status: Discontinued Saline Flush 0.9% 10 ml, Route: IVP, Drug Form: INJ, Dosing Weight 100, kg, Q12H, Start date: 11/04 12/19 9:00:00, Duration: 30 day, Stop date: 12/23/15 21:00:00 Notes: (Same as: BD Posiflush) Start Date: 11/24/15 Stop Date: 11/24/15 Status: Discontinued Saline Flush 0.9% 10 ml, Route: IVP, Drug Form: INJ, Dosing Weight 100, kg, PRN, PRN Line Flush, S tart date: 11/23/15 21:43:00, Duration: 30 day, Stop date: 12/23/15 21:42:00 Notes: (Same as: BD Posiflush) Start Date: 11/23/15 Stop Date: 11/24/15 Status: Discontinued Results ELECTROLYTES 1 2 3 Most recent to oldest [Reference Range]: 140 mEq/L (11/23/15 5:50 PM) Sodium Lvl [135-145 mEq/L] 4.2 mEq/L (11/23/15 5:50 PM) Potassium Lvl [3.5-5.1 mEq/L] 104 mEq/L (11/23/15 5:50 PM) Chloride Lvl [95-109 mEq/L] 29 mEq/L (11/23/15 5:50 PM) CO2 [24-32 mEq/L] 11.2 mEq/L (11/23/15 5:50 PM) AGAP [10.0-20.0 mEq/L] CHEM PANEL 1 2 3 Most recent to oldest [Reference Range]: 0.81 mg/dL (11/23/15 5:50 PM) Creatinine Lvl [0.50-1.40 mg/dL] 81 mL/min/1.73m2 1 *NA* (11/23/15 5:50 PM) eGFR 19 mg/dL (11/23/15 5:50 PM) BUN [7-22 mg/dL] 23 (11/23/15 5:50 PM) B/C Ratio [6-25] 133 mg/dL *HI* (11/23/15 5:50 PM) Glucose Lvl [70-99 mg/dL] 7.6 g/dL (11/23/15 5:50 PM) Total Protein [6.4-8.4 g/dL] 3.2 g/dL *LOW* (11/23/15 5:50 PM) Albumin Lvl [3.5-5.0 g/dL] 4.4 g/dL *HI* (11/23/15 5:50 PM) Globulin [2.0-4.0 g/dL] 0.7 (11/23/15 5:50 PM) A/G Ratio [0.7-1.6] 9.2 mg/dL (11/23/15 5:50 PM) Calcium Lvl [8.5-10.5 mg/dL] 37 unit/L (11/23/15 5:50 PM) ALT [0-65 unit/L] 20 unit/L (11/23/15 5:50 PM) AST [0-37 unit/L] 109 unit/L (11/23/15 5:50 PM) Alk Phos [39-136 unit/L] 0.4 mg/dL (11/23/15 5:50 PM) Bili Total [0.2-1.3 mg/dL] 1Result Comment: The [...] 3 Most recent to oldest [Reference Range]: 37 unit/L (11/24/15 6:27 AM) 32 unit/L (11/24/15 12:30 AM) 37 unit/L (11/23/15 5:50 PM) Total CK [12-191 unit/L] <0.5 ng/mL (11/24/15 6:27 AM) <0.5 ng/mL (11/24/15 12:30 AM) <0.5 ng/mL (11/23/15 5:50 PM) CK MB [0.5-3.6 ng/mL] <1.4 (11/23/15 5:50 PM) CK MB Index [0.0-2.5] <0.02 ng/mL (11/24/15 6:27 AM) <0.02 ng/mL (11/24/15 12:30 AM) <0.02 ng/mL (11/23/15 5:50 PM) Troponin-I [0.00-0.40 ng/mL] LIPIDS 1 2 3 Most recent to oldest [Reference Range]: 4.40 (11/24/15 11:41 AM) CHD Risk [3.90-5.80] 220 mg/dL *HI* (11/24/15 11:41 AM) Chol [<=199 mg/dL] 202 mg/dL *HI* (11/24/15 11:41 AM) Trig [<=149 mg/dL] 50 mg/dL *LOW* (11/24/15 11:41 AM) HDL [>=61 mg/dL] 130 mg/dL *HI* (11/24/15 11:41 AM) LDL (Calculated) [<=99 mg/dL] 40 *NA* (11/24/15 11:41 AM) VLDL HEMATOLOGY 1 2 3 Most recent to oldest [Reference Range]: 8.2 K/CMM (11/23/15 5:50 PM) WBC [3.7-10.4 K/CMM] 4.78 M/CMM (11/23/15 5:50 PM) RBC [4.20-5.40 M/CMM] 13.7 g/dL (11/23/15 5:50 PM) Hgb [12.0-16.0 g/dL] 43.1 % (11/23/15 5:50 PM) Hct [36.0-48.0 %] 90.2 fL (11/23/15 5:50 PM) MCV [80.0-98.0 fL] 28.6 pg (11/23/15 5:50 PM) MCH [27.0-31.0 pg] 31.7 g/dL *LOW* (11/23/15 5:50 PM) MCHC [32.0-36.0 g/dL] 14.1 % (11/23/15 5:50 PM) RDW [11.5-14.5 %] 244 K/CMM (11/23/15 5:50 PM) Platelet [133-450 K/CMM] 7.3 fL *LOW* (11/23/15 5:50 PM) MPV [7.4-10.4 fL] 65.7 % (11/23/15 5:50 PM) Segs [45.0-75.0 %] 24.8 % (11/23/15 5:50 PM) Lymphocytes [20.0-40.0 %] 6.9 % (11/23/15 5:50 PM) Monocytes [2.0-12.0 %] 1.7 % (11/23/15 5:50 PM) Eosinophils [0.0-4.0 %] 0.9 % (11/23/15 5:50 PM) Basophils [0.0-1.0 %] 5.4 K/CMM (11/23/15 5:50 PM) Segs-Bands # [1.5-8.1 K/CMM] 2.0 K/CMM (11/23/15 5:50 PM) Lymphocytes # [1.0-5.5 K/CMM] 0.6 K/CMM (11/23/15 5:50 PM) Monocytes # [0.0-0.8 K/CMM] 0.1 K/CMM (11/23/15 5:50 PM) Eosinophils # [0.0-0.5 K/CMM] 0.1 K/CMM (11/23/15 5:50 PM) Basophils # [0.0-0.2 K/CMM] Immunizations Vaccine Date [...]
--- OUTSIDE RECORDS SUMMARY | 2018-09-16 08:15 | XMS REPORT | Summary of Care ---
Author Organization Unknown Address Unknown Phone Unavailable Encounter RYLEE Mobley(JAY) [id number] Date(s): 01/23/15 - 01/23/15 [facility] [address] [place] [address]- Discharge Diagnosis: Acute bronchitis Discharge Diagnosis: Elevated BP Discharge Disposition: Home Physician Attending: Valeria Villa DO Vital Signs 1 2 3 Most recent to oldest [Reference Range]: 157.48 cm (01/23/15 10:53 AM) Height 98.0 DegF (01/23/15 12:30 PM) 98.2 DegF (01/23/15 10:53 AM) Temperature Oral [96.4-99.1 DegF] 165/95 mmHg *HI* (01/23/15 12:30 PM) 163/95 mmHg *HI* (01/23/15 10:53 AM) Blood Pressure [90-140/60-90 mmHg] 28 BRMIN *HI* (01/23/15 12:30 PM) 14 BRMIN (01/23/15 11:10 AM) 18 BRMIN (01/23/15 10:53 AM) Respiratory Rate [14-20 BRMIN] 84 bpm (01/23/15 12:30 PM) 85 bpm (01/23/15 10:53 AM) Peripheral Pulse Rate [60-100 bpm] 90.909 kg (01/23/15 10:53 AM) Weight 36.66 m2 (01/23/15 10:53 AM) Body Mass Index Problem List No data available for this section Allergies, Adverse Reactions, Alerts Substance Reaction Severity Status NKDA Active NKFA Active Medications albuterol 0.083% inhalation solution 2.49 mg, Route: NEB, Drug form: SOLN, ONCE, Dosing Weight 90.909, kg, Priority: STAT, Start date: 01/23/15 11:01:00, Stop date: 01/23/15 11:01:00 Start Date: 01/23/15 Stop Date: 01/23/15 Status: Completed albuterol 0.083% inhalation solution 2.49 mg=3 mL, INHALATION, Q6H, # 120 ea, 0 Refill(s) Start Date: 01/23/15 Status: Ordered albuterol 90 mcg/inh inhalation aerosol 1 puff, INHALATION, QID, wheezing, # 1 ea, 0 Refill(s) Start Date: 01/23/15 Status: Ordered albuterol-ipratropium 2.5-0.5 mg inhalation solution 3 mL, Route: NEB, Dosing Weight 90.909, kg, ONCE, STAT, Start date: 01/23/15 11: 01:00, Stop date: 01/23/15 11:01:00 Start Date: 01/23/15 Stop Date: 01/23/15 Status: Completed aspirin 324 mg, Route: CHEW, Drug form: CHEWTAB, ONCE, Dosing Weight 90.909, kg, Priorit y: STAT, Start date: 01/23/15 11:44:00, Stop date: 01/23/15 11:44:00 Start Date: 01/23/15 Stop Date: 01/23/15 Status: Completed Fioricet 300 mg-50 mg-40 mg oral capsule 1 cap, PO, Q4H, PRN Headache, Do not exceed 6 capsules in 24 hours, # 60 cap, 0 Refill(s) Special Instructions: Do not exceed 6 capsules in 24 hours Start Date: 01/23/15 Status: Ordered methylPREDNISolone SODium SUCCinate 125 mg, Route: IVP, ONCE, Dosing Weight 90.909, kg, Priority: STAT, Start date: 01/23/15 11:02:00, Stop date: 01/23/15 11:02:00 Start Date: 01/23/15 Stop Date: 01/23/15 Status: Completed Nebulizer 1 ea, MISC, ONCALL, # 1 ea, 0 Refill(s) Start Date: 01/23/15 Status: Ordered Saline Flush 0.9% 10 mL, Route: IVP, Drug Form: INJ, Dosing Weight 90.909, kg, PRN, PRN Line Flush , Start date: 01/23/15 11:01:00, Duration: 30 day, Stop date: 02/22/15 11:00:00 Notes: (Same as: BD Posiflush) Start Date: 01/23/15 Stop Date: 01/23/15 Status: Discontinued Results ELECTROLYTES Most recent to 1 oldest [Reference Range]: Sodium Lvl [135-145 141 mEq/L mEq/L] (01/23/15 11:13 AM) Potassium Lvl 4.0 mEq/L [3.5-5.1 mEq/L] (01/23/15 11:13 AM) Chloride Lvl [95-109 105 mEq/L mEq/L] (01/23/15 11:13 AM) CO2 [24-32 mEq/L] 28 mEq/L (01/23/15 11:13 AM) AGAP [10.0-20.0 12.0 mEq/L mEq/L] (01/23/15 11:13 AM) CHEM PANEL Most recent to 1 oldest [Reference Range]: Creatinine Lvl 0.8 mg/dL [0.5-1.4 mg/dL] (01/23/15 11:13 AM) eGFR 89 mL/min/1.73m2 1 *NA* (01/23/15 11:13 AM) BUN [7-22 mg/dL] 10 mg/dL (01/23/15 11:13 AM) Glucose Lvl [70-99 113 mg/dL 2 mg/dL] *HI* (01/23/15 11:13 AM) Calcium Lvl 8.4 mg/dL [8.5-10.5 mg/dL] *LOW* (01/23/15 11:13 AM) 1Result Comment: The eGFR is calculated [...] values reflect the clinical guidelines of the [place] [employer]. CARDIAC ENZYMES Most recent to 1 oldest [Reference Range]: Total CK [12-191 46 unit/L unit/L] (01/23/15: AM) CK MB [0.5-3.6 1.4 ng/mL ng/mL] (01/23/15 AM) CK MB Index 3.0 [0.0-2.5] *HI* (01/23/15) Troponin-I <0.02 ng/mL [0.00-0.40 ng/mL] (01/23/15 AM) HEMATOLOGY Most recent to 1 oldest [Reference Range]: WBC [3.7-10.4 K/CMM] 7.4 K/CMM (01/23/15 AM) RBC [4.20-5.40 4.48 M/CMM M/CMM] (01/23/15: AM) Hgb [12.0-16.0 g/dL] 13.2 g/dL (01/23/15 AM) Hct [36.0-48.0 %] 40.9 % (01/23/15: AM) MCV [80.0-98.0 fL] 91.1 fL (01/23/15 AM) MCH [27.0-31.0 pg] 29.4 pg (01/23/15 AM) MCHC [32.0-36.0 32.3 g/dL g/dL] (01/23/15 AM) RDW [11.5-14.5 %] 14.6 % *HI* (01/23/15 AM) Platelet [133-450 273 K/CMM K/CMM] (01/23/15: AM) MPV [7.4-10.4 fL] 7.3 fL *LOW* (01/23/15 AM) Segs [45.0-75.0 %] 50.3 % (01/23/15 11:13 AM) Lymphocytes 37.5 % [20.0-40.0 %] (01/23/15 11:13 AM) Monocytes [2.0-12.0 7.9 % %] (01/23/15 11:13 AM) Eosinophils [0.0-4.0 3.2 % %] (01/23/15 11:13 AM) Basophils [0.0-1.0 1.1 % %] *HI* (01/23/15 11:13 AM) Segs-Bands # 3.7 K/CMM [1.5-8.1 K/CMM] (01/23/15 11:13 AM) Lymphocytes # 2.8 K/CMM [1.0-5.5 K/CMM] (01/23/15 11:13 AM) Monocytes # [0.0-0.8 0.6 K/CMM K/CMM] (01/23/15 11:13 AM) Eosinophils # 0.2 K/CMM [0.0-0.5 K/CMM] (01/23/15 11:13 AM) Basophils # [0.0-0.2 0.1 K/CMM K/CMM] (01/23/15 11:13 AM) Immunizations No data available for this section Procedures No data available for this section Social History Social History Type Response Assessment and Plan No data available for this section
[2018-09-16 10:25] VITALS: BP 129/70
== END | disposition home or self-care (01) ==
LOC: OR 08:10
PROVIDERS: ATTEND Internal Medicine Gastroenterology
DX: Z12.11 Encounter for screening for malignant neoplasm of colon (principal); R10.13 Epigastric pain; R13.10 Dysphagia, unspecified; K63.5 Polyp of colon; K64.4 Residual hemorrhoidal skin tags; K64.8 Other hemorrhoids; K57.30 Diverticulosis of large intestine without perforation or abscess without bleeding; K21.0 Gastro-esophageal reflux disease with esophagitis; K22.2 Esophageal obstruction; K29.80 Duodenitis without bleeding; K26.9 Duodenal ulcer, unspecified as acute or chronic, without hemorrhage or perforation; K29.50 Unspecified chronic gastritis without bleeding; D12.2 Benign neoplasm of ascending colon
CPT/HCPCS: 36415; 43239; 43248; 45380; 45385; 82948; 93005; J1817; J2250; J2704; 43450